=== PATIENT | female | born 1990 | race Caucasian/White ===

== ENCOUNTER → 2020-03-03 13:56 | Outpatient (BNVA) | payer OTHER, SELFPAY | PROVIDERS: Family Provider Family Medicine; PCP Family Medicine; Visit Provider Nurse Practitioner Family | DX: Z20.828 Contact with and (suspected) exposure to other viral communicable diseases (principal) | CPT/HCPCS: 87635 ==

== ENCOUNTER → 2020-08-11 09:39 | Outpatient (BNVA) | payer BC, MEDICAID, SELFPAY | PROVIDERS: Family Provider Family Medicine; PCP Family Medicine; Visit Provider Emergency Medicine | DX: M79.671 Pain in right foot (principal) | CPT/HCPCS: 73630 ==

== ENCOUNTER → 2021-03-01 08:45 | Outpatient (BNVA) | payer BC, MEDICAID, SELFPAY | PROVIDERS: Family Provider Family Medicine; PCP Family Medicine; Visit Provider Counselor Professional | DX: F33.1 Major depressive disorder, recurrent, moderate (principal); F41.1 Generalized anxiety disorder | CPT/HCPCS: 90834 ==

== ENCOUNTER → 2021-03-06 07:46 | Outpatient (BNVA) | payer BC, MEDICAID, SELFPAY | PROVIDERS: Family Provider Family Medicine; PCP Family Medicine; Visit Provider Counselor Professional | DX: F33.1 Major depressive disorder, recurrent, moderate (principal); F41.1 Generalized anxiety disorder | CPT/HCPCS: 90834 ==

== ENCOUNTER → 2021-03-14 17:05 | Outpatient (BNVA) | payer BC, MEDICAID, SELFPAY | PROVIDERS: Family Provider Family Medicine; PCP Family Medicine; Visit Provider Emergency Medicine | DX: Z20.822 Contact with and (suspected) exposure to COVID-19 (principal); J06.9 Acute upper respiratory infection, unspecified; J02.8 Acute pharyngitis due to other specified organisms; B97.89 Other viral agents as the cause of diseases classified elsewhere | CPT/HCPCS: 87400; 87635; 87880 ==

== ENCOUNTER → 2021-03-14 17:05 | Outpatient (BNVA) | payer BC, MEDICAID, SELFPAY | PROVIDERS: Family Provider Family Medicine; PCP Family Medicine; Visit Provider Emergency Medicine | DX: Z01.89 Encounter for other specified special examinations (principal) | CPT/HCPCS: 87400; 87880 ==

== ENCOUNTER → 2021-03-27 10:45 | Outpatient (BNVA) | payer BC, MEDICAID, SELFPAY | PROVIDERS: Family Provider Family Medicine; PCP Family Medicine; Visit Provider Family Medicine | DX: H53.419 Scotoma involving central area, unspecified eye (principal); H52 Disorders of refraction and accommodation; Z13.6 Encounter for screening for cardiovascular disorders; Z13.1 Encounter for screening for diabetes mellitus | CPT/HCPCS: 80053; 80061; 83735; 84443; 85025 ==

== ENCOUNTER → 2021-09-09 17:01 | Outpatient (BNVA) | payer BC, MEDICAID, SELFPAY | PROVIDERS: Family Provider Family Medicine; PCP Family Medicine; Visit Provider Emergency Medicine | DX: J02.9 Acute pharyngitis, unspecified (principal); Z20.818 Contact with and (suspected) exposure to other bacterial communicable diseases | CPT/HCPCS: 87071; 87880 ==

== ENCOUNTER → 2021-10-20 11:52 | Outpatient (BNVA) | payer BC, MEDICAID, SELFPAY | PROVIDERS: Family Provider Family Medicine; PCP Family Medicine; Visit Provider Emergency Medicine | DX: M79.672 Pain in left foot (principal) | CPT/HCPCS: 73630 ==

== ENCOUNTER → 2021-11-20 09:38 | Outpatient (BNVA) | payer BC, MEDICAID, SELFPAY | PROVIDERS: Family Provider Family Medicine; PCP Family Medicine; Visit Provider Anesthesiology Pain Medicine | DX: M54.16 Radiculopathy, lumbar region (principal); M41.86 Other forms of scoliosis, lumbar region | CPT/HCPCS: 72114; 73522 ==

== ENCOUNTER → 2022-08-20 13:22 | Outpatient (BNVA) | payer BC, MEDICAID, SELFPAY | PROVIDERS: Family Provider Family Medicine; PCP Nurse Practitioner Family; Visit Provider Emergency Medicine | DX: M54.6 Pain in thoracic spine (principal) | CPT/HCPCS: 72072 ==

== ENCOUNTER 2024-12-08 08:20 | Emergency (ER) | payer BC, MEDICAID, SELFPAY ==
--- NOTE | 2024-12-08 08:24 | ECG_ITS ---
[facility] Test Date: 2024-12-08 Pat Name: Nancy Young Department: Room: Gender: Female Code Machine Operator: : 1990 Requested By: Suzan Nino Order Number: [id number] Kirby MD: Rashawn Almeida M.D. Measurements Intervals [place] Rate: 50 P: 70 IA: 122 QRS: 85 QRSD: 100 T: 83 QT: 426 QTc: 390 Interpretive Statements SINUS BRADYCARDIA WITH SINUS ARRHYTHMIA No previous ECG available for comparison Electronically Signed On 12-09-2024 16:55:14 CDT by Rashawn Almeida M.D. [email or web address]
[2024-12-08 08:31] VITALS: BP 133/79; PULSE 53; RESP 16; TEMP 36.7; O2SAT 100; BMI 24.7
--- NOTE | 2024-12-08 08:31 | XR_ITS ---
WS: [id number] XR chest 1V portable [id number] REASON FOR EXAM: dyspnea FINDINGS: Thoracic aorta and mediastinum are unremarkable. The heart is at the upper limits of normal. Calcified granulomatous disease bilaterally. No acute pulmonary parenchymal or pleural abnormality is identified. No significant abnormality of the bony thorax. XR/XR chest 1V portable [id number] IMPRESSION: No acute chest abnormality.
--- NOTE | 2024-12-08 08:33 | ED_ITS ---
HPI - General Adult 2 General: Chief complaint: Arrhythmia/Palpitations Stated complaint: rapid heart rate Time Seen by Provider: 12/08/24 08:29 Source: patient Mode of arrival: ambulatory Limitations: no limitations History of Present Illness: 34-year-old female states been having so me intermittent palpitations over the last week. States she has times she feels like her heart is racing over 160s specially worse when she is going upstairs had some mild dyspnea as well denies any shortness of breath at rest denies any chest pain. She denies any cough or fever no history of arrhythmias states she has been under a lot of stress over the last few weeks as well. Associated symptoms: Reports dyspnea Related Data Home Medications ?Medication ?Instructions ?Recorded ?Confirmed meloxicam 15 mg tablet 15 mg PO DAILY PRN 12/08/24 12/08/24 inflammation/pain phentermine 37.5 mg tablet 37.5 mg PO QAM 12/08/24 Previous Rx's ?Medication ?Instructions ?Recorded acetaminophen 500 mg capsule 500 mg PO Q6H PRN fever # 30 caps 03/22/22 Allergies Allergy/AdvReac Type Severity Reaction Status Date / Time amoxicillin AdvReac Mild rash Verified 01/03/23 12:31 Penicillins AdvReac Mild rash Verified 01/03/23 12:31 Review of Systems 2 Resp: Reports: dyspnea PFSH ED 2 PFSH: Medical History Arthropathy of sacroiliac joint Depression Surgical History H/O section Family History Mother Hypertension Denies family history of Diabetes Social History Smoking and tobacco/nicotine status: former use of tobacco/nicotine Alcohol intake: never Substance/Drug Use: never Current gender identity: Female Female Reproductive History: Spontaneous abortions: No Physical Exam 2 Const: COMMON NORMALS: no acute distress, patient oriented x3 and healthy appearing HENMT: COMMON NORMALS: normocephalic and atraumatic HEAD & SCALP: n ormocephalic and atraumatic Eye: COMMON NORMALS: conjunctivae normal CONJUNCTIVA: Yes conjunctivae normal Neck/C-Spine: COMMON NORMALS: full ROM and supple Chest: COMMONS NORMALS: normal inspection of the chest Resp: COMMON NORMALS: normal respiratory effort, No retractions, No use of accessory muscles and clear to auscultation bilaterally AUSCULTATION: clear to auscultation bilaterally Cardio: COMMON NORMALS: regular rate, regular rhythm and No murmurs present (Cardio) RATE: regular rate RHYTHM: regular rhythm Extremity: COMMON NORMALS: normal to inspection and full ROM Neuro: COMMON NORMALS: patient oriented x3, moves all extremities and no focal motor deficits Psych: COMMON NORMALS: mental status grossly normal, Normal thought process present and cooperative THOUGHT PROCESS: Normal thought process present Skin: COMMON NORMALS: no rashes or lesions noted and no wounds GENERAL SKIN EXAM: no rashes or lesions noted Course 2 Vital Signs: Vital signs: Vital Signs Temperature 98.0 F 12/08/24 08:31 Pulse Rate 53 L 12/08/24 08:31 Respiratory Rate 16 12/08/24 08:31 Blood Pressure 133/79 12/08/24 08:31 Pulse Oximetry 100 12/08/24 08:31 Oxygen Delivery Me thod Room Air 12/08/24 08:31 MDM - General Adult Medical Decision Making Patient presents here with feelings of palpitation especially exertions been going on for 4 to 5 days. She has been well-appearing here with no tachycardia here EKG showed sinus bradycardia heart rate [address] elevation QRS 100 QTc 399. Differential included pulmonary emboli, ACS, pneumonia, pneumothorax. He is ruled out here chest x-ray showed no acute abnormalities her D-dimer was negative with no signs of pulmonary emboli. EKG and troponin here are normal no signs of ACS. Her heart rate has been normal while here longer she needs a follow-up with PCP continues likely get a heart monitor outpatient and if she worsens she is to return did go over lab work which was normal here. She understands agrees to plan. Medical Records I reviewed the patient's medical records. Lab Data I reviewed the patient's lab results. 12/08/24 09:33 12/08/24 09:33 Radiology Impressions Chest X-Ray 12/08/24 08:31 IMPRESSION: No acute chest abnormality. Laboratory Results WBC 4.76 10^3/uL (3.29-11.43) 12/08/24 09:33 RBC 4.57 10^6/uL (3.85-5.65) 12/08/24 09:33 Hgb 10.90 g/dL (11.27-16.99) L 12/08/24 09:33 Hct 38.2 % (36-47) 12/08/24 09:33 MCV 83.6 fl (85-98) L 12/08/24 09:33 MCH 23.9 pg (27-33) L 12/08/24 09: MCHC 28.5 g/dL (30-55) L 12/08/24 09:33 RDW 20.0 % (12.1-15.1) H 12/08/24 09:33 Plt Count 292 10^3/cmm (157-399) 12/08/24 09:33 MPV 10.7 fL (7.4-10.4) H 12/08/24 09:33 Neut % (Auto) 67.7 % 12/08/24 09: Lymph % (Auto) 23.3 % 12/08/24 09:33 Dukes % (Auto) 6.5 % 12/08/24 09:33 Eos % (Auto) 1.5 % 12/08/24 09:33 Baso % (Auto) 0.8 % 12/08/24 09:33 Neut # (Auto) 3.22 10^3/uL (1.8-7.7) 12/08/24 09:33 Lymph # (Auto) 1.1 10^3/uL (0.8-4.8) 12/08/24 09:33 Dukes # (Auto) 0.3 10^3/uL (0.2-0.9) 12/08/24 09:33 Eos # (Auto) 0.1 10^3/uL (0.0-0.8) 12/08/24 09:33 Baso # (Auto) 0.0 10^3/uL (0.0-0.1) 12/08/24 09:33 Nucleated RBC % (auto) 0 % 12/08/24 09:33 Nucleated RBCs # 0.0 /100WBC 12/08/24 09:33 D-Dimer <= 0.27 ug/mLFEU (0-0.59) 12/08/24 09:33 Sodium 138 mmol/L (136-145) 12/08/24 09:33 Potassium 4.0 mmol/L (3.5-5.1) 12/08/24 09:33 Chloride 103 mmol/L (98-107) 12/08/24 09:33 Carbon Dioxide 23 mmol/L (22-29) 12/08/24 09:33 Anion Gap 16.0 (5-19) 12/08/24 09:33 BUN 15 mg/dL (6-20) 12/08/24 09:33 Creatinine 0.7 mg/dL (0.5-0.9) 12/08/24 09:33 GFR Calculation 95.2 mL/min (90-130) 12/08/24 09:33 Glucose 84 mg/dL (65-115) 12/08/24 09:33 Calculated Osmolality 286 mOsm/kg (285-295) 12/08/24 09:33 Calcium 9.7 mg/dL (8.5-10.5) 12/08/24 09:33 Total Bilirubin 0.3 mg/dL (0.15-1.2) 12/08/24 09:33 AST 18 U/L (0-32) 12/08/24 09:33 ALT 11 U/L (0-33) 12/08/24 09:33 Alkaline Phosphatase 92 U/L (35-105) 12/08/24 09:33 Troponin T Baseline < 6 ng/L (0-10) 12/08/24 09:33 Total Protein 6.5 g/dL (6.6-8.7) L 12/08/24 09:33 Albumin 4.2 g/dL (3.5-5.2) 12/08/24 09:33 Globulin 2.3 g/dL (1.3-4.6) 12/08/24 09:33 HCG, Qual Negative (Negative) 12/08/24 09:33 All radiology interpretation(s) finalized by discharge EKG Data EKG 1: I personally reviewed and interpreted this EKG as follows: EKG interpretation date: 12/08/24 EKG interpretation time: 08:24 Interpretation: sinus gaby hr [address] elevation qrs 100 qtc 399 Computer generated interpretation: Chest X-Ray 12/08/24 08:31 IMPRESSION: No acute chest abnormality. Discharge Plan Discharge Patient Disposition: Home Clinical Impression: Palpitations Condition: Stable Prescriptions: No Action acetaminophen 500 mg capsule 500 mg PO Q6H PRN (Reason: fever) Qty: 30 0RF phentermine 37.5 mg tablet 37.5 mg PO QAM meloxicam 15 mg tablet 15 mg PO DAILY PRN (Reason: inflammation/pain) Discharge Orders: Discharge ED (Routine); Ordered 12/08/24 Ordered By: Suzan iNno Referrals: Sandra Villarreal NP [Primary Care Provider, Family Practice] - 4-7 days Sheyla Wray MD [Family Provider, Family Practice] Discharge Diet: Advance as tolerated Discharge Activity: Resume usual activity Patient Instructions: Heart Palpitations (ED) Print Language: Kuwaiti Coding Level of Care Code ED Order Takers Supervisor for Ruma Nichole
--- OUTSIDE RECORDS SUMMARY | 2024-12-08 08:37 | XMS_ITS | Encounter Summary ---
Author Organization [facility] Address [address] [place] [address] Care Team Providers Care Pathology Technician Name Role Phone Hadley Fuentes DO Primary Care Provider [phone] Encounter Details Date Type Department Care Team (Latest Contact Info) Description 04/30/2006 Outpatient Historical [facility] Orthopedics- 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
--- OUTSIDE RECORDS SUMMARY | 2024-12-08 08:37 | XMS_ITS | Encounter Summary ---
Author Organization [facility] Address [address] [place] [address] Care Team Providers Care Crime Scene Investigator Name Role Phone Neftaly Carlos MD Primary Care Provider Reason for Visit * Reason Comments Clinical Consult Before Scheduling Encounter Details Date Type Department Care Team (Late st Contact Info) Description 12/02/2024 Nurse Triage [facility] [address] [address] Neftaly Carlos MD [address] [address] Social History Tobacco Use Types Packs/Day Years Used Date Smoking Tobacco: Former Cigarettes 0.3 10 0 08/2009 - 08/2019 Smokeless Tobacco: Never Comments:Quit once in 2007, quit again 08/2019 Alcohol Use Standard Drinks/Week Comments No 0 (1 standard drink = 0.6 oz pur e alcohol) Comments No Sex and Gender Information Value Date Recorded Sex Assigned at Not on file Legal Sex Female 8:40 AM WRAP TURNER Gender Identity Not on file Sexual Orientation Not on file documented as of this encounter Miscellaneous Notes * Telephone Encounter - Sharyn Layne RN - 12/03/2024 1:59 PM CDT 12/03/2024 1:59 PM Appt scheduled for patient to be seen in [place] per her requst. Sharyn FISHER * Telephone Encounter - Sharyn Layne RN - 12/02/2024 4:45 PM CDT 12/02/2024 4:45 PM Returned call and spoke with patient. She states that she did not get anything done with her foot today and will try to come into the walk-in clinic tomorrow. I let her know that it was best to schedule an appointment as the time slots fill up quickly. She will try to come in at 8 AM depending on her schedule. Sharyn RN * Telephone Encounter - Sharyn Layne RN - 12/02/2024 9:04 AM CDT 12/02/2024 9:04 AM Returned call. No answer. Left voice mail/message to return our call. If patient/caregiver calls back, contact center please inform caller to expect a return call from the clinic. We have same-day appointments available with the float. We can get her scheduled for the glass in her foot. Sharyn RN * Telephone Encounter - Hernan Roa - 12/02/2024 8:54 AM CDT Copied from [facility] #[id number]. Topic: Symptomatic Care >> Dec 02, 2024 8:48 AM Hernan Guaman wrote: Has this patient seen any provider (current or former) at the requested clinic in the past? Yes, Select the appropriate age range and symptom Patient has symptoms and is seeking care. Caller Name: Nancy Young Callback Number: Telephone Information: Call Notes: patient called requesting an appointment, states she had glass in her foot that has been there for a month and is causing her pain and she is wanting to start on ADHD medication. No appointments available until 12/2024. Informed to utilize [facility] for the glass in foot and to expect a call back from the care team. Age Range/Symptom: Adult: 18+ & not High Risk Pain - present for 3 days or more OR 7 or less severity on a 0-10 scale (10 being worst) Does patient have any of the following other urgent symptoms: No urgent symptoms requiring warm call transfer How would caller like to proceed? Schedule an appointment but none available within 24-48 hours How would caller like to proceed? Schedule first available with care team Is there an encounter open? No Unable to schedule an in person appointment within 24-48 hours. Scheduled appointment for n/a. If this is not clinically appropriate, please contact patient. documented in this encounter Plan of Treatment Upcoming Encounters Date Type Department Care Team (Late st Contact Info) Description 12/14/2024 1:40 PM CDT Office Visit [address] [phone] Neftaly Carlos MD [address] [place] [phone] 04/13/2025 2:00 PM WRAP TURNER Office Visit [address] [phone] Neftaly Carlos MD [address] [place] [phone] documented as of this encounter Visit Diagnoses Not on filedocumented in this encounter Care Teams Crime Scene Investigator Relationship Specialty Start Date End Date Neftaly Carlos MD [address] [place] [phone] PCP - General Family Practice 07/08/23 documented as of this encounter
--- OUTSIDE RECORDS SUMMARY | 2024-12-08 08:37 | XMS_ITS | Encounter Summary ---
Author Organization [facility] Address [address] [place] [address] Care Team Providers Care Guest Service Team Leader Name Role Phone Hadley Fuentes DO Primary Care Provider [phone] Encounter Details Date Type Department Care Team (Latest Contact Info) Description 03/19/2006 Outpatient Historical [facility] Orthopedics- 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
--- OUTSIDE RECORDS SUMMARY | 2024-12-08 08:37 | XMS_ITS | Encounter Summary ---
Author Organization [facility] Address [address] [place] [address] Care Team Providers Care Factory Machine Computer Operator Name Role Phone Hadley Fuentes DO Primary Care Provider [phone] Encounter Details Date Type Department Care Team (Latest Contact Info) Description 05/15/2006 Outpatient Historical [facility] [address] [facility] [address] [place] [address] Jesus Adame MD NO ADDRESS ON FILE [facility] Com Orth Dev NEC (CMS/HCC) (Primary Dx) Social History Tobacco Use Types Packs/Day Years Used Date Smoking Tobacco: Never Assessed Comments Unknown Sex and Gender Information Value Date Recorded Sex Assigned at Not on file Legal Sex Female 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
--- OUTSIDE RECORDS SUMMARY | 2024-12-08 08:37 | XMS_ITS | Encounter Summary ---
Author Organization [employer] [facility] Address [address] [place] [address] Care Team Providers Care Optical Goods Drill Operator Name Role Phone Hadley Fuentes DO Primary Care Provider [phone] Encounter Details Date Type Department Care Team (Late st Contact Info) Description 04/09/2007 Outpatient Historical [facility] Jesus Adame MD NO ADDRESS ON FILE Social History Tobacco Use Types Packs/Day Years Used Date Smoking Tobacco: Never Assessed Comments Unknown Sex and Gender Information Value Date Recorded Sex Assigned at Not on file Legal Sex Female 5:52 AM 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 Venous blood specimen (specimen) 04/14/2007 4:01 PM GRIDDLE ATTENDANT 04/15/2007 2:48 AM GRIDDLE ATTENDANT us Jesus Adame MD POINT OF CARE TESTING Final Result [facility] [address] [place] [address] * BETA HCG QUANTITATIVE, BLOOD (04/14/2007 12:41 PM GRIDDLE ATTENDANT) CHORIONIC GONADOTROPIN, TOTAL <2.0 0.0 - 10.0 mlU/ML [facility] Comment: Total HCG levels between 10 mIU/mL and 25 mIU/mL may be indicative of early but need to be correlated with other clinical findings. HCG ranges during normal , as reported by the time piece repairer, are summarized as follows: Gestational Age Expected hCG Values (mIU/ml) 0.2-1 Weeks 5 - 50 1-2 Weeks 50 - 500 2-3 Weeks 100 - 5,000 3-4 Weeks 1,000 - 50,000 5-6 Weeks 10,000 - 100,000 6-8 Weeks 15,000 - 200,000 2-3 Months 10,000 - 100,000 Blood specimen (specimen) 04/14/2007 12:41 PM GRIDDLE ATTENDANT 04/14/2007 12:41 PM GRIDDLE ATTENDANT us Jesus Adame MD CHEMISTRY ORDERABLES Final R esult [facility] [address] [place] [address] documented in this encounter Visit Diagnoses Not on filedocumented in this encounter Care Teams Optical Goods Drill Operator Relationship Specialty Start Date End Date Hadley Fuentes DO [address] [place] [address] PCP - General Family Practice 03/29/20 documented as of this encounter
--- OUTSIDE RECORDS SUMMARY | 2024-12-08 08:37 | XMS_ITS | Encounter Summary ---
Author Organization [facility] Address [address] [place] [address] Care Team Providers Care Construction Carpenter Name Role Phone Hadley Fuentes DO Primary Care Provider [phone] Encounter Details Date Type Department Care Team (Latest Contact Info) Description 02/08/2006 Outpatient Historical [facility] Orthopedics- 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
--- OUTSIDE RECORDS SUMMARY | 2024-12-08 08:37 | XMS_ITS | Encounter Summary ---
Author Organization [facility] Address [address] [place] [address] Care Team Providers Care Education Rn Name Role Phone Hadley Fuentes DO Primary Care Provider [phone] Encounter Details Date Type Department Care Team (Late st Contact Info) Description 04/04/2007 Outpatient Historical [facility] Orthopedics- 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 CHIEF COMPLAINT: Pain left thigh. HISTORY OF PRESENT ILLNESS: This 16-year-old female is seen for removal of hardware left femur. Shedoes indicate that she did initially improve following 05/15/06 removal of distal most interlockingscrew from the left femur, and she was doing well. Nevertheless, she has had some persisting achiness in the left lower extremity, thigh region, and she voices desire to proceed with removal of hardware. I did obtain plain film x-rays of the left thigh on 04/04/07, and these revealed a Belmont T2 rods/screws in place left lower extremity, three interlocking screws noted distally, with a mid to distal diaphysial fracture, which appears to be well healed at this point. Proximally, there are two in terlocking screws noted, and hip joint appears well preserved. The patient is noted to have some discomfort with every day activities, has some soreness at night as well as during the day. She does indicate that she has hurt worse since February 01, 2007. She does have, by way of past medical history, no diabetes, tuberculosis, cancer, seizures, cardiovascular disease. PAST SURGICAL HISTORY: Positive for 05/15/06 removal of distal most interlocking screw left femur as well as 02/01/06 intramedullary soraida left femoral shaft fracture with retrograde placed Kathleen T2 intramedullary device, interlocked proximally and distally. CURRENT MEDICATIONS: 1. Celebrex. 2. Concerta. ALLERGIES: She reports allergy to Penicillin. FAMILY HISTORY: Negative for familial/congenital disorder. SOCIAL HISTORY: Positive for two packs per week of cigarette usage, and she denies alcoholic beverage intake. She reports no history of substance abuse, indicates that she has completed 12 years of school. She lists no occupation, indicates she is with no children, does not live alone. REVIEW OF SYSTEMS: Positive for night pain, joint pains. NEUROLOGICAL: Negative. ENDOCRINE: Negative. HEMATOLOGIC: Negative. GENITOURINARY: Negative. RESPIRATORY: Negative. CARDIOVASCULAR: Negative. REPRODUCTIVE: Negative. GASTROINTESTINAL: Negative. CANCER: Negative. IMMUNOLOGICAL: Negative. PSYCHIATRIC: Negative. GYNECOLOGIC: Negative. The patient indicates she is not . PHYSICAL EXAMINATION: VITAL SIGNS: Recorded revealing blood pressure 123/71, pulse of 64, respirations 14. HEENT: Normocephalic. NECK: Supple. LUNGS: Clear to percussion bilaterally. CARDIOVASCULAR: Regular rate and rhythm. ABDOMEN: Soft, nontender. EXTREMITIES: No cyanosis, clubbing, or edema is noted. The patient has no point tenderness over theleft thigh. She does have well healed incision at the site of the interlocking screws distally along the left thigh as well as proximally and the patient does have incision overlying the knee, which is well healed as well. She does have functional range of motion above the left knee and hip, slightly less than is noted on the right, however, at the knee in particular, about 10 degrees different in flexion. She does fully extend. There is no point tenderness over the patella or over the medial lateral femoral condylar surfaces. The patient describes a diffuse achiness in the left thigh. The x-rays are reviewed, findings as noted above. NEUROLOGICAL: The patient does have intact motor and sensory examination distally. Both lower extremities normal skin color appearance distally with normal muscle strength and tone. Pulses are symmetric in both lower extremities at the posterior tibialis with good capillary refill of both lower extremities. IMPRESSION: Retained hardware left femur. RECOMMENDATION: Discussed with the patient that there certainly can be no guarantee that removal ofhardware will reduce her discomfort, although I expect that there is good prospect that it will reduce her discomfort. She does understand that some individuals do have residual pain/limitations withor without hardware removal. I did certified travel counselor her that problems can and do arise with removal of hardware and we went through the informed consent process. She does voice understanding of and satisfaction with responses to her questions and voices desire to proceed with surgery as outlined, removal ofhardware. I anticipate that she likely will require at least an overnight stay, given her further extensive hardware in that femur , and I did advise her, as well, that it is not always possible to remove all of the hardware, as sometimes screws break or portions of the soraida or screws must remain ifthe hardware breaks or otherwise undergoes deformity during removal attempts. She acknowledges this. Scheduling is arranged for 04/14/07, removal of Belmont T2 rods/screws left femur. Jesus Adame M.D. [facility] Electronically Signed by Jesus Adame M.D. 04/14/2007 08:46 , A, dmt Job #: Document #: [id number] cc: IGN [employer] COOK SPECIALTY documented in this encounter Plan of Treatment Not on file documented as of this encounter Visit Diagnoses Not on filedocumented in this encounter Care Teams Education Rn Relationship Specialty Start Date End Date Hadley Fuentes DO [address] [place] [address] PCP - General Family Practice 03/29/20 documented as of this encounter
--- OUTSIDE RECORDS SUMMARY | 2024-12-08 08:37 | XMS_ITS | Encounter Summary ---
Author Organization [employer] [facility] Address [address] [place] [address] Care Team Providers Care Architectural Superintendent Name Role Phone Hadley Fuentes DO Primary Care Provider [phone] Encounter Details Date Type Department Care Team (Late st Contact Info) Description 02/01/2006 Inpatient Historical [facility] IN BED Jony Dsouza MD [address] [address] Closed Fracture of Shaft of Femur (CMS/HCC) (Primary Dx) Social History Tobacco Use Types Packs/Day Years Used Date Smoking Tobacco: Never Assessed Comments Unknown Sex and Gender Information Value Date Recorded Sex Assigned at Not on file Legal Sex Female 5:52 AM RN ELIGIBILITY Gender Identity Not on file Sexual Orientation Not on file documented as of this encounter Plan of Treatment Not on file documented as of this encounter Procedures Procedure Name Priority Date/Time Associated Diagnosis Comments CBC WITH DIFFERENTIAL Routine 02/02/2006 7:42 AM RN ELIGIBILITY BASIC METABOLIC PANEL Routine 02/02/2006 7:42 AM RN ELIGIBILITY CBC WITHOUT DIFFERENTIAL Routine 02/02/2006 12:20 AM RN ELIGIBILITY POC GLUCOSE Routine 02/01/2006 10:18 PM RN ELIGIBILITY CBC WITH DIFFERENTIAL Routine 02/01/2006 4:36 PM RN ELIGIBILITY PROTIME-INR Routine 02/01/2006 4:36 PM RN ELIGIBILITY ETHANOL LEVEL Routine 02/01/2006 4:36 PM RN ELIGIBILITY BASIC METABOLIC PANEL Routine 02/01/2006 4:36 PM RN ELIGIBILITY documented in this encounter Results * (ABNORMAL) BASIC METABOLIC PANEL (02/02/2006 7:42 AM RN ELIGIBILITY) GLUCOSE 122(H) 70 - 110 mg/dL INTERFACE SYSTEM BUN 17 7 - 17 mg/dL INTERFACE SYSTEM CREATININE 0.8 0.7 - 1.2 mg/dL INTERFACE SYSTEM SODIUM 138 136 - 145 mEq/L INTERFACE SYSTEM POTASSIUM 4.7 3.5 - 5.0 mEq/L INTERFACE SYSTEM CHLORIDE 105 95 - 110 mEq/L INTERFACE SYSTEM CO2 27 22 - 32 mmol/l INTERFACE SYSTEM ANION GAP 11 9 - 20 mEq/L INTERFACE SYSTEM OSMOLALITY, CALCULATED 288 275 - 295 mOsm/Kg INTERFACE SYSTEM CALCIUM 9.1 8.4 - 10.5 mg/dL INTERFACE SYSTEM 02/02/2006 7:42 AM RN ELIGIBILITY us Jony Dsouza MD CHEMISTRY ORDERABLES Final Result INTERFACE SYSTEM Refer to clinic/hospital department * (ABNORMAL) CBC WITH DIFFERENTIAL (02/02/2006 7:42 AM RN ELIGIBILITY) Pathologist [facility] WBC 12.2 4.5 - 13.5 K/ul INTERFACE SYSTEM RBC 3.49(L) 4.30 - 5.30 Mil/ul INTERFACE SYSTEM HEMOGLOBIN 10.1(L) 12.0 - 16.0 g/dL INTERFACE SYSTEM HEMATOCRIT 30.4(L) 36.0 - 46.0 % INTERFACE SYSTEM MCV 87.1 78.0 - 102.0 Fl INTERFACE SYSTEM MCH 28.9 26.0 - 32.0 pg INTERFACE SYSTEM MCHC 33.2 33.0 - 35.0 g/dL INTERFACE SYSTEM RDW 13.3 11.0 - 14.5 % INTERFACE SYSTEM PLATELETS 231 140 - 440 K/ul INTERFACE SYSTEM MPV 9.8 8.9 - 12.8 Fl INTERFACE SYSTEM NEUTROPHILS 89.2(H) 42.2 - 75.2 % INTERFACE SYSTEM LYMPHOCYTES 5.5(L) 24.0 - 44.0 % INTERFACE SYSTEM MONOCYTES 5.3 2.0 - 10.0 % INTERFACE SYSTEM NEUTROPHIL ABSOLUTE 10.9(H) 2.0 - 8.0 K/uL INTERFACE SYSTEM LYMPHOCYTE ABSOLUTE 0.7(L) 1.2 - 4.0 K/ul INTERFACE SYSTEM MONOCYTE ABSOLUTE 0.6 0.1 - 0.6 K/ul INTERFACE SYSTEM 02/02/2006 7:42 AM RN ELIGIBILITY Jony Dsouza MD HEMATOLOGY ORDERABLES Final Result INTERFACE SYSTEM Refer to clinic/hospital department * (ABNORMAL) CBC WITHOUT DIFFERENTIAL (02/02/2006 12:20 AM RN ELIGIBILITY) WBC 18.0(H) 4.5 - 13.5 K/ul INTERFACE SYSTEM RBC 3.64(L) 4.30 - 5.30 Mil/ul INTERFACE SYSTEM HEMOGLOBIN 10.5(L) 12.0 - 16.0 g/dL INTERFACE SYSTEM HEMATOCRIT 31.4(L) 36.0 - 46.0 % INTERFACE SYSTEM MCV 86.3 78.0 - 102.0 Fl INTERFACE SYSTEM MCH 28.8 26.0 - 32.0 pg INTERFACE SYSTEM MCHC 33.4 33.0 - 35.0 g/dL INTERFACE SYSTEM RDW 13.3 11.0 - 14.5 % INTERFACE SYSTEM PLATELETS 224 140 - 440 K/ul INTERFACE SYSTEM MPV 10.0 8.9 - 12.8 Fl INTERFACE SYSTEM NEUTROPHILS 94.9(H) 42.2 - 75.2 % INTERFACE SYSTEM LYMPHOCYTES 2.7(L) 24.0 - 44.0 % INTERFACE SYSTEM MONOCYTES 2.3 2.0 - 10.0 % INTERFACE SYSTEM BASOPHILS 0.1 0.0 - 1.0 % INTERFACE SYSTEM NEUTROPHIL ABSOLUTE 17.1(H) 2.0 - 8.0 K/uL INTERFACE SYSTEM LYMPHOCYTE ABSOLUTE 0.5(L) 1.2 - 4.0 K/ul INTERFACE SYSTEM MONOCYTE ABSOLUTE 0.4 0.1 - 0.6 K/ul INTERFACE SYSTEM BASOPHILS ABSOLUTE 0.0 0.0 - 0.2 K/ul INTERFACE SYSTEM 02/02/2006 12:2 0 AM RN ELIGIBILITY Jony Dsouza MD HEMATOLOGY ORDERABLES Final Result INTERFACE SYSTEM Refer to clinic/hospital department * (ABNORMAL) POC GLUCOSE (02/01/2006 10:18 PM RN ELIGIBILITY) GLUCOSE POC 162(H) 60 - 100 mg/dL INTERFACE SYSTEM 02/01/2006 10:1 8 PM RN ELIGIBILITY Jony Dsouza MD POINT OF CARE TESTING Final Result Performing Organization Address [facility] Phone Number INTERFACE SYSTEM Refer to clinic/hospital department * PROTIME-INR (02/01/2006 4:36 PM RN ELIGIBILITY) Pathologist [facility] PROTIME 15.2 13.0 - 15.7 Secs INTERFACE SYSTEM Comment: As of 05 note change in normal range. INR 1.1 INTERFACE SYSTEM Comment: Expected Values for INR: DVT/PE Goal INR 2.5; range 2.0 - 3.0 Valve Replacement Tissue Goal INR 2.5; range 2.0 - 3.0 Mechanical Goal INR 3.0; range 2.5 - 3.5 POST-CO Goal INR 2.5; range 2.0 - 3.0 or Goal 3.0; range 2.5 - 3.5 Atrial Fibrillation Goal INR 2.5; range 2.0 - 3.0 Ischemic Stroke Goal INR 2.5; range 2.0 - 3.0 For additional information see Guidelines for Anticoagulation available from the pharmacy Obdulia Pollack Pharm D. 02/01/2006 4:36 PM RN ELIGIBILITY us Lio Jones MD HEMATOLOGY ORDERABLES Lakisha l Result Performing Organization Address [facility] Phone Number INTERFACE SYSTEM Refer to clinic/hospital department * (ABNORMAL) CBC WITH DIFFERENTIAL (02/01/2006 4:36 PM RN ELIGIBILITY) WBC 16.8(H) 4.8 - 10.8 K/ul INTERFACE SYSTEM RBC 4.29(L) 4.60 - 6.20 Mil/ul INTERFACE SYSTEM HEMOGLOBIN 12.5(L) 14.0 - 18.0 g/dL INTERFACE SYSTEM HEMATOCRIT 37.5(L) 41.0 - 53.0 % INTERFACE SYSTEM MCV 87.4 84.0 - 103.0 Fl INTERFACE SYSTEM MCH 29.1 27.0 - 34.0 pg INTERFACE SYSTEM MCHC 33.3 30.0 - 35.0 g/dL INTERFACE SYSTEM RDW 13.1 11.0 - 14.5 % INTERFACE SYSTEM PLATELETS 303 140 - 440 K/ul INTERFACE SYSTEM MPV 10.3 8.9 - 12.8 Fl INTERFACE SYSTEM NEUTROPHILS 73.3 42.2 - 75.2 % INTERFACE SYSTEM LYMPHOCYTES 20.9(L) 24.0 - 44.0 % INTERFACE SYSTEM MONOCYTES 4.5 2.0 - 10.0 % INTERFACE SYSTEM EOSINOPHILS 1.1 0.0 - 7.0 % INTERFACE SYSTEM BASOPHILS 0.2 0.0 - 1.0 % INTERFACE SYSTEM NEUTROPHIL ABSOLUTE 12.3(H) 2.0 - 8.0 K/uL INTERFACE SYSTEM LYMPHOCYTE ABSOLUTE 3.5 1.2 - 4.0 K/ul INTERFACE SYSTEM MONOCYTE ABSOLUTE 0.8(H) 0.1 - 0.6 K/ul INTERFACE SYSTEM EOSINOPHIL ABSOLUTE 0.2 0.0 - 0.7 K/ul INTERFACE SYSTEM BASOPHILS ABSOLUTE 0.0 0.0 - 0.2 K/ul INTERFACE SYSTEM 02/01/2006 4:36 PM RN ELIGIBILITY Lio Jones MD HEMATOLOGY ORDERABLES Lakisha l Result Performing Organization Address [facility] Co de Phone Number INTERFACE SYSTEM Refer to clinic/hospital department * ETHANOL LEVEL (02/01/2006 4:36 PM RN ELIGIBILITY) ETHANOL <10 <=10 mg/dL INTERFACE SYSTEM 02/01/2006 4:36 PM RN ELIGIBILITY Lio Jones MD CHEMISTRY ORDERABLES Final Result INTERFACE SYSTEM Refer to clinic/hospital department * (ABNORMAL) BASIC METABOLIC PANEL (02/01/2006 4:36 PM RN ELIGIBILITY) GLUCOSE 158(H) 70 - 110 mg/dL INTERFACE SYSTEM BUN 20 9 - 20 mg/dL INTERFACE SYSTEM CREATININE 0.9 0.7 - 1.5 mg/dL INTERFACE SYSTEM SODIUM 141 136 - 145 mEq/L INTERFACE SYSTEM POTASSIUM 3.0(L) 3.5 - 5.0 mEq/L INTERFACE SYSTEM CHLORIDE 105 95 - 110 mEq/L INTERFACE SYSTEM CO2 26 22 - 32 mmol/l INTERFACE SYSTEM ANION GAP 13 9 - 20 mEq/L INTERFACE SYSTEM OSMOLALITY, CALCULATED 294 275 - 295 mOsm/Kg INTERFACE SYSTEM CALCIUM 9.5 8.4 - 10.5 mg/dL INTERFACE SYSTEM 02/01/2006 4:36 PM RN ELIGIBILITY us Lio Jones MD CHEMISTRY ORDERABLES Final Result INTERFACE SYSTEM Refer to clinic/hospital department documented in this encounter Visit Diagnoses Diagnosis Closed fracture of shaft of femur- Primary documented in this encounter Care Teams Architectural Superintendent Relationship Specialty Start Date End Date Hadley Fuentes DO [address] [place] [address] PCP - General Family Practice 03/29/20 documented as of this encounter
--- OUTSIDE RECORDS SUMMARY | 2024-12-08 08:37 | XMS_ITS | Encounter Summary ---
Author Organization [facility] Address [address] [place] [address] Care Team Providers Care Automotive Quality Manager Name Role Phone Hadley Fuentes DO Primary Care Provider [phone] Encounter Details Date Type Department Care Team (Latest Contact Info) Description 05/28/2006 Outpatient Historical [facility] Orthopedics[address] [place] [address] Jesus Adame MD NO ADDRESS ON FILE Cmp Int Orth Dev/Gft NOS (CMS/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
--- OUTSIDE RECORDS SUMMARY | 2024-12-08 08:38 | XMS_ITS | Encounter Summary ---
Author Organization [facility] Address 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 * Telephone Encounter - Michelle Joy LPN - 10/12/2024 12:35 PM CDT 10/12/2024 12:35 PM Called and notified patient of results. Voiced understanding. Patient states that she is not takinga supplement for her anemia. Encouraged he to eat iron enriched foods and to take with vitamin C enriched foods to help with absorption. Patient states that she went to the eye doctor and he said that she has 20/20 vision and that the pressure in her eyes is fine. But she is still having the blurriness. Did ask eye doctor and he was wondering if she may have a sinus issues or because of her frequent CASTRO maybe the residual effects of a stroke. Also patient states that she has not did the MRI yet was waiting for the blood work and after seeing her eye doctor. Michlele GUTIERREZ * Telephone Encounter - Michelle Joy LPN - 10/12/2024 12:35 PM CDT ----- Message from Delores Ruano sent at 10/12/2024 8:31 AM CDT ----- It will take a bit longer to get your autoimmune panel back. Your basic labs show you are a bit anemic. Do you take any kind of supplement? How are the visual issues? Have you gotten your MRI yet? ----- Message ----- From: Reddy Chavira Incoming [facility] Results Sent: 10/10/2024 6:55 AM CDT To: DALE Doherty * Result Encounter Note - Delores Ruano FNP - 10/12/2024 8:31 AM CDT Findings: The bones are intact, well mineralized and normally aligned and the joint spaces are well-maintained. [id number]-rf-hibaponi plantar calcaneal spur. IMPRESSION: 1. Nothing acute. * Result Encounter Note - Delores Ruano FNP - 10/12/2024 8:31 AM CDT It will take a bit longer to get your autoimmune panel back. Your basic labs show you are a bit anemic. Do you take any kind of supplement? How are the visual issues? Have you gotten your MRI yet? documented in this encounter Plan of Treatment Upcoming Encounters Date Type Department Care Team (Late st Contact Info) Description 12/14/2024 1:40 PM CDT Office Visit [facility] [address] [phone] Neftaly Carlos MD [address] [place] [phone] 04/13/2025 2:00 PM INTEGRATION PROJECT MANAGER Office Visit [address] [address] Neftaly Carlos MD [address] [place] [phone] documented as of this encounter Visit Diagnoses Not on filedocumented in this encounter Care Teams Development Mgr Relationship Specialty Start Date End Date Neftaly Carlos MD [address] [address] PCP - General Family Practice 07/08/23 documented as of this encounter
--- OUTSIDE RECORDS SUMMARY | 2024-12-08 08:38 | XMS_ITS | Clinical Summary ---
Author Organization [facility] [place] Address [address] [place] [address] Care Team Providers Care Gear Machinist Name Role Phone Hadley Fuentes Primary Care Provider [phone] Allergies Active Allergy Reactions Criticality Noted Date Comments Penicillins Unknown 11/21/2007 Medications ferrous sulfate 325 mg (65 mg iron) tablet 03/02/2020 Active Vitamin Plus Low Iron 27 mg iron- 1 mg Tablet 03/02/2020 Active escitalopram oxalate (LEXAPRO) 10 mg tablet Take 1 Tablet (10 mg) by mouth daily. Take with 20mg tablet 30 Tablet 2 03/29/2020 Active escitalopram oxalate (LEXAPRO) 20 mg tablet Take 1 Tablet (20 mg) by mouth daily. Take with 10mg tablet 30 Tablet 2 03/29/2020 Active ARIPiprazole (ABILIFY) 2 mg tablet Take 1 Tablet (2 mg) by mouth daily. 30 Tablet 2 03/29/2020 Active Active Problems Problem Noted Date Diagnosed Date Supervision of other normal 10/15/2014 Previous delivery affecting 0 10/15/2014 Sleeplessness 06/01/2009 Attention deficit hyperactivity disorder (ADHD) 11/15/2008 Overview (03/21/2010): Updating IMO/ICD9 Code and Description Irritability and anger 11/15/2008 Overview (03/22/2010): Updating IMO/ICD9 Code and Description Panic attacks 11/15/2008 Immunizations Immunization Administration Dates Next Due (TDVAX)(7 YRS UP) TETANUS AN D DIPHTHERIA TOXOIDS, ADSORBED (2 LF OF TETANUS TOXOID AND 2 LF OF DIPHTHERIA TOXOID), 0.5ML (PF), IM 08/02/2009,12/02/2003 Hepatitis B Vaccine 04/01/2002,09/15/2001,2001 Influenza Vaccine Split 3+ Yrs IM 12/16/2007 Family History Medical History Relation Name Comments Unknown Father Healthy Mother Relation Name Status Comments Father Alive Mother Alive Social History Tobacco Use Types Packs/Day Years Used Date Smoking Tobacco: Former Cigarettes 0.3 2.5 0 11/13/2004 - 05/15/2007 Smokeless Tobacco: Never Alcohol Use Standard Drinks/Week Comments No 0 (1 standard drink = 0.6 oz pur e alcohol) Comments No Sex and Gender Information Value Date Recorded Sex Assigned at Not on file Legal Sex Female 5:52 AM SSRS REPORT DEVELOPER Gender Identity Not on file Sexual Orientation Not on file Occupation Industry Job Start Date Job End Date Not on file Not on file Not on file Not on file Last Filed Vital Signs Vital Sign Reading Time Taken Comments Blood Pressure 124/64 03/29/2020 4:03 PM SSRS REPORT DEVELOPER Pulse 69 03/29/2020 4:03 PM SSRS REPORT DEVELOPER Temperature 35.8 C (96.4 F) 03/29/2020 4:03 PM SSRS REPORT DEVELOPER Respiratory Rate 20 10/17/2014 11:38 AM CDT Oxygen Saturation 98% 03/29/2020 4:03 PM SSRS REPORT DEVELOPER Inhaled Oxygen Concentration - - Weight 114.3 kg (252 lb) 03/29/2020 4:03 PM SSRS REPORT DEVELOPER Height 177.8 cm (5' 10 ) 03/29/2020 4:03 PM SSRS REPORT DEVELOPER Body Mass Index 36.16 03/29/2020 4:03 PM SSRS REPORT DEVELOPER Plan of Treatment Health Maintenance Due Date Last Done Comments Pre-Diabetes and Diabetes Screening 1989 DTAP/TDAP/TD VACCINES (2 - Tdap) 08/03/2009 08/03/19 10, 12/02/2003 HPV/Cotest (21-29) 03/30/2016 03/30/2011 HPV VACCINES (1 - 3-dose SCDM series) 2016 CERVICAL CANCER SCREENING 2019 HPV/Cotest (30-65) 2019 03/30/2011 PAP SMEAR 2019 03/30/2011 Preventative Visit-Managed Medicaid 07/08/202407/07 INFLUENZA VACCINE (#1) 2024 12/16/2007 HEPATITIS B VACCINES Completed 04/01/2002, 09/15/2001, 06/24/2001 Procedures Procedure Name Priority Date/Time Associated Diagnosis Comments CERV/VAG CYTOPATH, THIN PREP W/RFLX HPV Routine 03/30/2011 7:37 AM SSRS REPORT DEVELOPER from Last 3 Months or Most Recently Relevant to Health Maintenance Results * CERV/VAG CYTOPATH, THIN PREP W/RFLX HPV (03/30/2011 7:37 AM SSRS REPORT DEVELOPER) Pathologist [facility] THIN PREP CYTOLOGY REPORT REFLEX HPV [facility] [address] [facility] [address] Patient: NANCY QUEVEDO Accn No: [id number] , [id number] Collected: 03/30/2011 7:37:00 AM All cases except those with a DP prefix are performed by pathologists from [facility]. Case type DP is performed by Dr. Magnus Barlow, [facility] [address], [address] [address] (CLIA #[id number]) (Ph. [phone]). THIN PREP PAP - REFLEX HPV History Specimen Type: Endocervical LMP: 03-22-11 Previous Pap History: None Provided Specimen Adequacy Satisfactory for interpretation. Shows sufficient numbers of endocervical or metaplastic cells. Diagnosis NEGATIVE FOR INTRAEPITHELIAL LESION OR MALIGNANCY. (Prevously noted as Within Normal Limits). Interior Wall Assembler/ JMM Pathologist: 04/09/11 Completed by: MERE HERNÁNDEZ(ASCP) (Electronically signed by) 04/09/11 Comment Routine follow-up is suggested. Important Information About Pap Smears The Pap smear is associated with a low but well-documented and probably irreducible false negative rate of up to 10%. Additionally, the false positive rate for a diagnosis of invasive carcinoma or HSIL has been estimated to be approximately 1-10%. Therefore, any visible lesion on the cervix should be biopsied regardless of Pap smear findings. HPV Testing off the Thin Prep vial can be done as a means of further evaluating a Thin Prep Report. For information about ordering the HPV test, phone Virology at . Treatment or follow-up recommendations (if any) that are contained within this report are based upon general recommendations as contained in 2001 Consensus Guidelines For Cervical Cytological Abnormalities MELANI: June 18, 2001, and are provided as a general guideline rather than as a specific recommendation. Final decisions about the most appropriate treatment and follow-up should be made on an individualized basis by the treating physician in consultation with his/her patient. [facility] Home Team Therapy [facility] 03/30/2011 7:37 AM SSRS REPORT DEVELOPER Autumn Parry HOUSECLEANER FLOOR PATHOLOGY/CYTOLOGY ORDERABLES Edited INTERFACE SYSTEM Refer to clinic/hospital department [facility] [employer] [facility] CLIA# [id number] [address] [place] [id number] from Last 3 Months or Most Recently Relevant to Health Maintenance Insurance [facility] MEDICAID Advance Directives For more information, please contact: [phone] * Full Code (Latest Code Status on File) Date Activated Date Inactivated Comments 10/15/2014 3:00 PM 10/17/2014 3:31 PM * Full Code Date Activated Date Inactivated Comments 10/15/2014 1:37 PM 10/15/2014 3:00 PM * Full Code Date Activated Date Inactivated Comments 10/15/2014 10:21 AM 10/15/2014 1:37 PM Care Teams Gear Machinist Relationship Specialty Start Date End Date Hadley Fuentes DO [address] [place] [address] PCP - General Family Practice 03/29/20
--- OUTSIDE RECORDS SUMMARY | 2024-12-08 08:38 | XMS_ITS | Encounter Summary ---
Author Organization [facility] Address [address] [place] [address] Care Team Providers Care Home Care Assistant Name Role Phone Hadley Fuentes DO Primary Care Provider [phone] Encounter Details Date Type Department Care Team (Late st Contact Info) Description 02/26/2008 Emergency [facility] Emergency Department [address] [place] [address] Ed, Physician NO ADDRESS ON FILE Yuliana Marshall, BILINGUAL MANAGER NO ADDRESS ON FILE Abdominal Pain, Unspecified Site; Personal History of Allergy to Penicillin; Other Postprocedural Status Social History Tobacco Use Types Packs/Day Years Used Date Smoking Tobacco: Former Cigarettes 0.3 2.5 0 11/13/2004 - 05/15/2007 Comments Yes Sex and Gender Information Value Date Recorded Sex Assigned at Not on file Legal Sex Female 5:52 AM BUSINESS OFFICE REPRESENTATIVE Gender Identity Not on file Sexual Orientation Not on file documented as of this encounter Plan of Treatment Not on file documented as of this encounter Visit Diagnoses Diagnosis Abdominal pain, unspecified site Personal history of allergy to penicillin Other postprocedural status(V45.89) Other postprocedural status documented in this encounter Care Teams Home Care Assistant Relationship Specialty Start Date End Date Hadley Fuentes DO [address] [place] [address] PCP - General Family Practice 03/29/20 documented as of this encounter
--- OUTSIDE RECORDS SUMMARY | 2024-12-08 08:38 | XMS_ITS | Encounter Summary ---
Author Organization [facility] Address [address] [place] [address] Care Team Providers Care Piece Maker Name Role Phone Hadley Fuentes DO Primary Care Provider [phone] Encounter Details Date Type Department Care Team (Latest Contact Info) Description 06/17/2007 Outpatient Historical [address] [id number] Tra Clark MD [address] [place] [address] Supervision of Other Normal Social History Tobacco Use Types Packs/Day Years Used Date Smoking Tobacco: Never Assessed Comments Yes Sex and Gender Information Value Date Recorded Sex Assigned at Not on file Legal Sex Female 5:52 AM AIRFIELD SERVICES OFFICER Gender Identity Not on file Sexual Orientation Not on file documented as of this encounter Plan of Treatment Not on file documented as of this encounter Procedures Procedure Name Priority Date/Time Associated Diagnosis Comments GC, GENITAL Routine 06/17/2007 4:34 PM CDT CHLAMYDIA, GENITAL Routine 06/17/2007 4: 34 PM CDT documented in this encounter Results * GC DNA AMPLIFICATION (06/17/2007 4:34 PM CDT) FINAL REPORT DNA Amplification Assay: negative for Neisseria gonorrhoeae This procedure is approved for testing only on endocervical and male urethral swab specimens and male urine. The use of specimens from any other body site has not been validated. INTERFACE SYSTEM Specimen from genital system (specimen) CERVIX UTERI STRUCTURE / Unknown 06/17/2007 4:34 PM CDT 06/18/2007 12:24 PM CDT Tra Clark MD MICROBIOLOGY - GENERAL KARENA PROSPER Final Result Performing Organization Address [facility] Phone Number INTERFACE SYSTEM Refer to clinic/hospital department * CHLAMYDIA DNA AMPLIFICATION (06/17/2007 4:34 PM CDT) FINAL REPORT DNA Amplification Assay: negative for Chlamydia trachomatis * This procedure is approved for testing only on endocervical and male urethral swab specimens and urine. The use of specimens from any other body site has not been validated. INTERFACE SYSTEM Specimen from genital system (specimen) CERVIX UTERI STRUCTURE / Unknown 06/17/2007 4:34 PM CDT 06/18/2007 12:24 PM CDT Tra Clark MD MICROBIOLOGY - GENERAL KARENA BLEFermin Final Result Performing Organization Address [facility] de Phone Number INTERFACE SYSTEM Refer to clinic/hospital department documented in this encounter Visit Diagnoses Diagnosis Supervision of other normal documented in this encounter Care Teams Piece Maker Relationship Specialty Start Date End Date Hadley Fuentes DO [address] [place] [address] PCP - General Family Practice 03/29/20 documented as of this encounter
--- OUTSIDE RECORDS SUMMARY | 2024-12-08 08:38 | XMS_ITS | Encounter Summary ---
Author Organization [facility] Address [address] [place] [address] Care Team Providers Care Data Scientist Name Role Phone Hadley Fuentes DO Primary Care Provider [phone] Encounter Details Date Type Department Care Team (Late st Contact Info) Description 02/07/2010 Ancillary Orders [facility] [address] [place] [phone] Yaw Dasilva MD [address] [place] [address] Hematuria; Flank pain Social History Tobacco Use Types Packs/Day Years Used Date Smoking Tobacco: Former Cigarettes 0.3 2.5 0 11/13/2004 - 05/15/2007 Alcohol Use Standard Drinks/Week Comments No 0 (1 standard drink = 0.6 oz pur e alcohol) Comments No Sex and Gender Information Value Date Recorded Sex Assigned at Not on file Legal Sex Female 5:52 AM LEGAL BILLING SPECIALIST Gender Identity Not on file Sexual Orientation Not on file documented as of this encounter Plan of Treatment Not on file documented as of this encounter Visit Diagnoses Diagnosis Hematuria Hematuria, unspecified Flank pain Abdominal pain, unspecified site documented in this encounter Care Teams Data Scientist Relationship Specialty Start Date End Date Hadley Fuentes DO [address] [address] PCP - General Family Practice 03/29/20 documented as of this encounter
--- OUTSIDE RECORDS SUMMARY | 2024-12-08 08:38 | XMS_ITS | Encounter Summary ---
Author Organization [employer] [facility] Address [address] [place] [address] Care Team Providers Care Flatwork Catcher Name Role Phone Hadley Fuentes DO Primary Care Provider [phone] Encounter Details Date Type Department Care Team (Latest Contact Info) Description 02/01/2006 Outpatient Historical [facility] [address] [place] [address] [facility] Pain in Joint, Shoulder Region (Primary Dx) Social History Tobacco Use Types Packs/Day Years Used Date Smoking Tobacco: Never Assessed Comments Unknown Sex and Gender Information Value Date Recorded Sex Assigned at Not on file Legal Sex Female 5:52 AM FOREIGN LANGUAGE TEACHER Gender Identity Not on file Sexual Orientation Not on file documented as of this encounter Plan of Treatment Not on file documented as of this encounter Visit Diagnoses Diagnosis Pain in joint, shoulder region- Primary documented in this encounter Care Teams Flatwork Catcher Relationship Specialty Start Date End Date Hadley Fuentes DO [address] [place] [address] PCP - General Family Practice 03/29/20 documented as of this encounter
--- OUTSIDE RECORDS SUMMARY | 2024-12-08 08:38 | XMS_ITS | Encounter Summary ---
Author Organization [employer] [facility] Address [address] [place] [address] Care Team Providers Care Samples And Repairs Preparer Name Role Phone Hadley Fuentes DO Primary Care Provider [phone] Encounter Details Date Type Department Care Team (Latest Contact Info) Description 10/03/2004 Outpatient Historical [facility] [address] [place] [address] Yaw Dasilva MD [address] [place], [place] [address] SHORTNESS OF BREATH (Primary Dx) Social History Tobacco Use Types Packs/Day Years Used Date Smoking Tobacco: Never Assessed Comments Unknown Sex and Gender Information Value Date Recorded Sex Assigned at Not on file Legal Sex Female 5:52 AM CASINO HOST Gender Identity Not on file Sexual Orientation Not on file documented as of this encounter Plan of Treatment Not on file documented as of this encounter Visit Diagnoses Diagnosis Shortness of breath- Primary documented in this encounter Care Teams Samples And Repairs Preparer Relationship Specialty Start Date End Date Hadley Fuentes DO [address] [place] [address] PCP - General Family Practice 03/29/20 documented as of this encounter
--- OUTSIDE RECORDS SUMMARY | 2024-12-08 08:38 | XMS_ITS | Encounter Summary ---
Author Organization [employer] [facility] Address [address] [place] [address] Care Team Providers Care Sales Project Manager Name Role Phone Hadley Fuentes DO Primary Care Provider [phone] Encounter Details Date Type Department Care Team (Latest Contact Info) Description 02/01/2006 Outpatient Historical [facility] [address] [place] [address] AMBULANCE, [facility] Injury, Other and Unspecified, Hip and Thigh (Primary Dx) Social History Tobacco Use Types Packs/Day Years Used Date Smoking Tobacco: Never Assessed Comments Unknown Sex and Gender Information Value Date Recorded Sex Assigned at Not on file Legal Sex Female 5:52 AM SUPERINTENDENT CEMETERY Gender Identity Not on file Sexual Orientation Not on file documented as of this encounter Plan of Treatment Not on file documented as of this encounter Visit Diagnoses Diagnosis Injury, other and unspecified, hip and thigh- Primary documented in this encounter Care Teams Sales Project Manager Relationship Specialty Start Date End Date Hadley Fuentes DO [address] [place] [address] PCP - General Family Practice 03/29/20 documented as of this encounter
--- OUTSIDE RECORDS SUMMARY | 2024-12-08 08:38 | XMS_ITS | Encounter Summary ---
Author Organization [facility] Address [address] [place] [address] Care Team Providers Care Front End Manager Name Role Phone Hadley Fuentes DO Primary Care Provider [phone] Encounter Details Date Type Department Care Team (Late st Contact Info) Description 11/27/2007 Outpatient Historical [facility] Bg Garza Jr., MD [address] [place] [id number] Social History Tobacco Use Types Packs/Day Years Used Date Smoking Tobacco: Every Day Cigarettes 0.3 2.5 Comments Yes Sex and Gender Information Value Date Recorded Sex Assigned at Not on file Legal Sex Female 5:52 AM SAIL FINISHER HAND Gender Identity Not on file Sexual Orientation Not on file documented as of this encounter Plan of Treatment Not on file documented as of this encounter Visit Diagnoses Not on filedocumented in this encounter Care Teams Front End Manager Relationship Specialty Start Date End Date Hadley Fuentes DO [address], [place] [address] PCP - General Family Practice 03/29/20 documented as of this encounter
--- OUTSIDE RECORDS SUMMARY | 2024-12-08 08:38 | XMS_ITS | Encounter Summary ---
Author Organization [employer] [facility] Address [address] [place] [address] Care Team Providers Care Post Acute Care Nurse Name Role Phone Hadley Fuentes DO Primary Care Provider Encounter Details Date Type Department Care Team (Late st Contact Info) Description 01/18/2008 Outpatient Historical HIS IN BED Sj Ed, Physician NO ADDRESS ON FILE Mark Pereyra MD [address] [facility] [address] [place] [address] Akira Matias MD NO ADDRESS ON FILE Infection-Gram Neg NEC; Cellulitis and Abscess of Trunk Social History Tobacco Use Types Packs/Day Years Used Date Smoking Tobacco: Former Cigarettes 0.3 2.5 0 11/13/2004 - 05/15/2007 Comments Yes Sex and Gender Information Value Date Recorded Sex Assigned at Not on file Legal Sex Female 5:52 AM GUEST SERVICES LEAD Gender Identity Not on file Sexual Orientation Not on file documented as of this encounter Plan of Treatment Not on file documented as of this encounter Procedures Procedure Name Priority Date/Time Associated Diagnosis Comments SEDIMENTATION RATE Routine 01/24/2008 6: 05 AM GUEST SERVICES LEAD GENTAMICIN LEVEL PEAK Routine 01/23/2008 4:22 AM GUEST SERVICES LEAD GENTAMICIN LEVEL TROUGH Routine 01/22/2008 11:10 PM GUEST SERVICES LEAD CBC WITH DIFFERENTIAL Routine 01/22/2008 6:49 PM GUEST SERVICES LEAD SEDIMENTATION RATE Routine 01/22/2008 6: 49 PM GUEST SERVICES LEAD GENTAMICIN LEVEL PEAK Routine 01/22/2008 6:49 PM GUEST SERVICES LEAD GENTAMICIN LEVEL TROUGH Routine 01/22/2008 4:00 PM GUEST SERVICES LEAD GENTAMICIN LEVEL PEAK Stat 01/20/2008 2:30 AM GUEST SERVICES LEAD CBC WITH DIFFERENTIAL Routine 01/19/2008 11:34 PM GUEST SERVICES LEAD GENTAMICIN LEVEL TROUGH Routine 01/19/2008 11:34 PM GUEST SERVICES LEAD BODY FLUID CULTURE WITH GRAM STAIN Routine 01/19/2008 10:58 AM GUEST SERVICES LEAD ANAEROBIC CULTURE Routine 01/19/2008 10: 58 AM GUEST SERVICES LEAD US GUIDED ASPIRATION Routine 01/19/2008 10:53 AM GUEST SERVICES LEAD PT AND APTT Stat 01/19/2008 7:44 AM GUEST SERVICES LEAD PLATELET COUNT Stat 01/19/2008 7:44 AM GUEST SERVICES LEAD GC, GENITAL Stat 01/19/2008 2:35 AM GUEST SERVICES LEAD CHLAMYDIA, GENITAL Stat 01/19/2008 2: 35 AM GUEST SERVICES LEAD WET PREP GENITAL Stat 01/19/2008 2:35 AM GUEST SERVICES LEAD URINE CULTURE Stat 01/19/2008 2:[address] [address] ABDOMEN PELVIS W CONTRAST Routine 01/19/2008 2:00 AM GUEST SERVICES LEAD CBC WITH DIFFERENTIAL Stat 01/19/2008 12:35 AM GUEST SERVICES LEAD BASIC METABOLIC PANEL Stat 01/19/2008 12:35 AM GUEST SERVICES LEAD URINALYSIS MICROSCOPY ONLY Stat 01/19/2008 12:20 AM GUEST SERVICES LEAD URINALYSIS W/REFLEX MICROSCOPIC Stat 01/19/2008 12:20 AM GUEST SERVICES LEAD documented in this encounter Results * (ABNORMAL) SEDIMENTATION RATE (01/24/2008 6:05 AM GUEST SERVICES LEAD) ESR (SEDIMENTATION RATE) 105(H) 0 - 22 mm/hr [facility] Blood specimen (specimen) 01/24/2008 6:05 AM GUEST SERVICES LEAD 01/24/2008 6:17 AM GUEST SERVICES LEAD us Akira Matias MD HEMATOLOGY ORDERABLES Final Res ult Performing Organization Address [facility] Phone Number INTERFACE SYSTEM Refer to clinic/[facility] CLIA# [id number] [address] [place] [address] * GENTAMICIN LEVEL PEAK (01/23/2008 4:22 AM GUEST SERVICES LEAD) GENTAMICIN, PEAK 6.4 4.0 - 10.0 mcg/mL [facility] Blood specimen (specimen) 01/23/2008 4:22 AM GUEST SERVICES LEAD 01/23/2008 4:40 AM GUEST SERVICES LEAD us Akira Matias MD CHEMISTRY ORDERABLES Final Resu lt Performing Organization Address [facility] Phone Number INTERFACE SYSTEM Refer to clinic/[facility] CLIA# [id number] [address] [place] [address] * (ABNORMAL) GENTAMICIN LEVEL TROUGH (01/22/2008 11:10 PM GUEST SERVICES LEAD) GENTAMICIN, TROUGH 2.8(AA) 0.0 - 2.0 mcg/mL [facility] Comment: Potentially critical/toxic GENT T called by AAG to Urban FISHER, with verbal read back, at 01/23/08 00:01. Blood specimen (specimen) 01/22/2008 11:10 PM GUEST SERVICES LEAD 01/22/2008 11:24 PM GUEST SERVICES LEAD us Akira Matias MD CHEMISTRY ORDERABLES Final Resu lt Performing Organization Address [facility] Phone Number INTERFACE SYSTEM Refer to clinic/hospital department [facility] CLIA# [id number] [address] [place] [address] * GENTAMICIN LEVEL PEAK (01/22/2008 6:49 PM GUEST SERVICES LEAD) [facility] GENTAMICIN, PEAK 7.9 4.0 - 10.0 mcg/mL [facility] Blood specimen (specimen) 01/22/2008 6:49 PM GUEST SERVICES LEAD 01/22/2008 7:12 PM GUEST SERVICES LEAD us Akira Matias MD CHEMISTRY ORDERABLES Final Resu lt Performing Organization Address [facility] Phone Number INTERFACE SYSTEM Refer to clinic/hospital department [facility] CLIA# [id number] [address] [place] [address] * (ABNORMAL) SEDIMENTATION RATE (01/22/2008 6:49 PM GUEST SERVICES LEAD) [facility] ESR (SEDIMENTATION RATE) 105(H) 0 - 22 mm/hr [facility] Blood specimen (specimen) 01/22/2008 6:49 PM GUEST SERVICES LEAD 01/22/2008 7:12 PM GUEST SERVICES LEAD us Akira Matias MD HEMATOLOGY ORDERABLES Final Res ult Performing Organization Address [facility] de Phone Number INTERFACE SYSTEM Refer to clinic/hospital department [facility] CLIA# [id number] [address] [place] [address] * (ABNORMAL) CBC WITH DIFFERENTIAL (01/22/2008 6:49 PM GUEST SERVICES LEAD) [facility] RBC 4.03(L) 4.20 - 5.40 Mil/ul [facility] LYMPHOCYTES 25.1 24.0 - 44.0 % [facility] MCHC 32.9 30.0 - 35.0 g/dL [facility] LYMPHOCYTE ABSOLUTE 2.4 1.2 - 4.0 K/ul [facility] MCV 83.6(L) 84.0 - 103.0 Fl [facility] MPV 9.0 8.9 - 12.8 Fl [facility] BASOPHILS 0.5 0.0 - 1.0 % [facility] BASOPHILS ABSOLUTE 0.1 0.0 - 0.2 K/ul [facility] HEMOGLOBIN 11.1(L) 12.0 - 16.0 g/dL [facility] RDW 14.6(H) 11.0 - 14.5 % [facility] MONOCYTES 4.5 2.0 - 10.0 % [facility] MONOCYTE ABSOLUTE 0.4 0.1 - 0.6 K/ul [facility] WBC 9.6 4.5 - 12.5 K/ul [facility] MCH 27.5 27.0 - 34.0 pg [facility] NEUTROPHIL ABSOLUTE 6.3 2.0 - 8.0 K/ul [facility] NEUTROPHILS 65.6 42.2 - 75.2 % [facility] HEMATOCRIT 33.7(L) 36.0 - 46.0 % [facility] EOSINOPHILS 4.3 0.0 - 7.0 % [facility] PLATELETS 441(H) 140 - 440 K/ul [facility] EOSINOPHIL ABSOLUTE 0.4 0.0 - 0.7 K/ul [facility] Blood specimen (specimen) 01/22/2008 6:49 PM GUEST SERVICES LEAD 01/22/2008 7:12 PM GUEST SERVICES LEAD us Akira Matias MD HEMATOLOGY ORDERABLES Final Res ult INTERFACE SYSTEM Refer to clinic/hospital department [facility] CLIA# [id number] [address] [place] [address] * (ABNORMAL) GENTAMICIN LEVEL TROUGH (01/22/2008 4:00 PM GUEST SERVICES LEAD) GENTAMICIN, TROUGH 3.6(AA) 0.0 - 2.0 mcg/mL [facility] Comment: Potentially critical/toxic GEN.TROUGH called by Baker, with verbal read back, at 01/22/08 18:01. Blood specimen (specimen) 01/22/2008 4:00 PM GUEST SERVICES LEAD 01/22/2008 4:24 PM GUEST SERVICES LEAD us Akira Matias MD CHEMISTRY ORDERABLES Final Resu lt Performing Organization Address [facility] Phone Number INTERFACE SYSTEM Refer to clinic/hospital department [facility] CLIA# [id number] [address] [place] [address] * GENTAMICIN LEVEL PEAK (01/20/2008 2:30 AM GUEST SERVICES LEAD) GENTAMICIN, PEAK 5.9 4.0 - 10.0 mcg/mL [facility] Blood specimen (specimen) 01/20/2008 2:30 AM GUEST SERVICES LEAD 01/20/2008 2:42 AM GUEST SERVICES LEAD us Akira Matias MD CHEMISTRY ORDERABLES Final Resu Performing Organization Address [facility] Phone Number INTERFACE SYSTEM Refer to clinic/hospital [facility] CLIA# [id number] [address] [place] [address] * GENTAMICIN LEVEL TROUGH (01/19/2008 11:34 PM GUEST SERVICES LEAD) GENTAMICIN, TROUGH 1.2 0.0 - 2.0 mcg/mL [facility] Blood specimen (specimen) 01/19/2008 11:34 PM GUEST SERVICES LEAD 01/19/2008 11:46 PM GUEST SERVICES LEAD us Akira Matias MD CHEMISTRY ORDERABLES Final Resu Performing Organization Address [facility] Phone Number INTERFACE SYSTEM Refer to clinic/[facility] CLIA# [id number] [address] [place] [address] * (ABNORMAL) CBC WITH DIFFERENTIAL (01/19/2008 11:34 PM GUEST SERVICES LEAD) NEUTROPHIL ABSOLUTE 9.2(H) 2.0 - 8.0 K/ul [facility] NEUTROPHILS 75.6(H) 42.2 - 75.2 % [facility] HEMATOCRIT 29.3(L) 36.0 - 46.0 % [facility] EOSINOPHILS 2.1 0.0 - 7.0 % [facility] PLATELETS 308 140 - 440 K/ul [facility] EOSINOPHIL ABSOLUTE 0.3 0.0 - 0.7 K/ul [facility] RBC 3.48(L) 4.20 - 5.40 Mil/ul [facility] LYMPHOCYTES 16.6(L) 24.0 - 44.0 % [facility] MCHC 32.1 30.0 - 35.0 g/dL [facility] LYMPHOCYTE ABSOLUTE 2.0 1.2 - 4.0 K/ul [facility] MCV 84.2 84.0 - 103.0 Fl [facility] MPV 9.1 8.9 - 12.8 Fl [facility] BASOPHILS ABSOLUTE 0.0 0.0 - 0.2 K/ul [facility] BASOPHILS 0.2 0.0 - 1.0 % [facility] HEMOGLOBIN 9.4(L) 12.0 - 16.0 g/dL [facility] RDW 14.7(H) 11.0 - 14.5 % [facility] MONOCYTE ABSOLUTE 0.7(H) 0.1 - 0.6 K/ul [facility] MONOCYTES 5.5 2.0 - 10.0 % [facility] WBC 12.2 4.5 - 12.5 K/ul [facility] MCH 27.0 27.0 - 34.0 pg [facility] Blood specimen (specimen) 01/19/2008 11:34 PM GUEST SERVICES LEAD 01/19/2008 11:46 PM GUEST SERVICES LEAD us Akira Matias MD HEMATOLOGY ORDERABLES Final Res ult INTERFACE SYSTEM Refer to clinic/hospital department [facility] CLIA# [id number] [address] [place] [address] * ANAEROBIC CULTURE (01/19/2008 10:58 AM GUEST SERVICES LEAD) FINAL REPORT Dr. Matias requests susceptibility (with addition of Erythromycin) to these isolates 11.08. 1. Heavy isolation anaerobic Gram Positive Coccobacilli Identified as: Peptostreptococcus prevotii Erythromycin 0.12 mcg/ml 2. Few colonies anaerobic Gram negative bacilli Identified as: Prevotella species Erythromycin 0.06 mcg./ml NOTE: Erthromycin not indicated in the treatment of anaerobes. Therefore, no interpretive guidelines available. INTERFACE SYSTEM SUSCEPTIBILITY PERFORMED ON ANAEROCOCCUS {PEPTOSTREPTOCOCCUS} PREVOTII INTERFACE SYSTEM SUSCEPTIBILITY PERFORMED ON PREVOTELLA SPECIES INTERFACE SYSTEM ABDOMEN AND PELVIS / Unknown 01/19/2008 10:58 AM GUEST SERVICES LEAD 01/19/2008 12:34 PM GUEST SERVICES LEAD Narrative Organism Antibiotic Method Susceptibility Anaerococcus prevotii CLINDAMYCIN GN SUSCEPTIBILITY 0.12: Susceptible Anaerococcus prevotii METRONIDAZOLE GN SUSCEPTIBILITY 0.12: Susceptible Anaerococcus prevotii PENICILLIN GN SUSCEPTIBILITY 4: Resistant Prevotella species CLINDAMYCIN GN SUSCEPTIBILITY <0.03: Susceptible Prevotella species METRONIDAZOLE GN SUSCEPTIBILITY 1: Susceptible Prevotella species PENICILLIN GN SUSCEPTIBILITY 4: Resistant Akira Matias MD MICROBIOLOGY - GENERAL ORDERABL ES Final Result INTERFACE SYSTEM Refer to clinic/hospital department * BODY FLUID CULTURE WITH GRAM STAIN (01/19/2008 10:58 AM GUEST SERVICES LEAD) GRAM STAIN Numerous (>50/oil hpf) Gram negative bacilli Numerous (>50/oil hpf) Gram positive bacilli Numerous (>50/oil hpf) Gram positive cocci Numerous (>10/oil hpf) PMN WBC's observed INTERFACE SYSTEM ADDENDUM REPORT Addendum report issued due to: Dr. Matias requests susceptibility on isolate #1. 1. Heavy isolation Gram positive cocci Identified as: Viridans Streptococcus species Susceptibility available 01/24/08 10:03:55. 2. Heavy isolation Gram variable rods suggestive of Gardnerella vaginalis Susceptibility not routinely performed Due to fastidious growth requirements and lack of standardization of test methodology susceptibility testing is not routinely performed on this organism. INTERFACE SYSTEM SUSCEPTIBILITY PERFORMED ON STREPTOCOCCUS VIRIDANS INTERFACE SYSTEM 01/19/2008 10:5 8 AM GUEST SERVICES LEAD 01/19/2008 12:34 PM GUEST SERVICES LEAD Narrative Organism Antibiotic Method Susceptibility Streptococcus viridans CEFOTAXIME E TEST 0.25: Susceptible Streptococcus viridans CLINDAMYCIN E TEST 0.06: Susceptible Streptococcus viridans ERYTHROMYCIN E TEST 4: Resistant Streptococcus viridans LEVOFLOXACIN E TEST 0.5: Susceptible Streptococcus viridans PENICILLIN E TEST 0.06: Susceptible Streptococcus viridans VANCOMYCIN E TEST 1: Susceptible Akira Matias MD MICROBIOLOGY - GENERAL ORDERABL ES Edited INTERFACE SYSTEM Refer to clinic/hospital department * US GUIDED ASPIRATION (01/19/2008 10:53 AM GUEST SERVICES LEAD) Anatomical Region Laterality Modality Other 01/19/2008 10:5 3 AM GUEST SERVICES LEAD Narrative 01/19/2008 3:42 PM GUEST SERVICES LEAD Ultrasound Guided Aspiration Jan 19, 2008 10:53:43 AM Clinical History: Status post . Fluid collection in incisional line. Technique: Full PARQ conference was held. The patient understood and wished to proceed. Informed written consent was obtained. The patient was placed supine on the aspiration table. Following sterile prep and local anesthesia with 1% lidocaine, a 10 cm Tractiveesis catheter was introduced into anterior incisional fluid collection under ultrasonographic control and 60 mL of fluid removed of which 20 mL were sent to the lab for further evaluation. There were no immediate complications. Medications: 5 mg Versed, 200 mcg fentanyl for uncomplicated intravenous conscious sedation. Findings: 60 mL of pus were removed from anterior incisional line fluid collection as detailed above. Impression: Ultrasound guided aspiration. - Dictated By: Terrence Hahn M.D., Ph.D. Electronically Signed By: Terrence Hahn M.D., Ph.D. Date Signed: 01/19/08 Procedure Note Terrence Hahn - 01/19/2008 Ultrasound Guided Aspiration Jan 19, 2008 10:53:43 AM Clinical History: Status post . Fluid collection in incisionalline. Technique: Full PARQ conference was held. The patient understood andwished to proceed. Informed written consent was obtained. The patient was placed supine on the aspiration table. Following sterileprep and local anesthesia with 1% lidocaine, a 10 cm [employer] centesis catheter was introduced into anteriorincisional fluid collection under ultrasonographic control and 60 mL of fluid removed of which 20 mLwere sent to the lab for further evaluation. There were no immediate complications. Medications: 5 mg Versed, 200 mcg fentanyl for uncomplicated intravenousconscious sedation. Findings: 60 mL of pus were removed from anterior incisional line fluidcollection as detailed above. Impression: Ultrasound guided aspiration. - Dictated By: Terrence Hahn M.D., Ph.D. Electronically Signed By: Terrence Hahn M.D., Ph.D. Date Signed: 01/19/08 us Akira Matias MD US ORDERABLES Final Result * (ABNORMAL) PT AND APTT (01/19/2008 7:44 AM GUEST SERVICES LEAD) PTT 37.5(H) 22.5 - 36.5 Secs [facility] Comment: Therapeutic Range: Hi-level PE/DVT heparin protocol 80.1 -95.0 sec Lo-level PE/DVT heparin protocol 67.1 - 80.0 sec Cardiac Heparin Protocol 67.1 - 85.0 sec Neuro Heparin Protocol 67.1 - 80.0 sec As of 05/15/2007 note change in APTT Normal Range. INR 1.2 [facility] Comment: Expected Values for INR: DVT/PE Goal INR 2.5; range 2.0 - 3.0 Valve Replacement Tissue Goal INR 2.5; range 2.0 - 3.0 Mechanical Goal INR 3.0; range 2.5 - 3.5 POST-MT Goal INR 2.5; range 2.0 - 3.0 or Goal 3.0; range 2.5 - 3.5 Atrial Fibrillation Goal INR 2.5; range 2.0 - 3.0 Ischemic Stroke Goal INR 2.5; range 2.0 - 3.0 For additional information see Guidelines for Anticoagulation available from the pharmacy Farhan Lucas [phone] PROTIME 16.6(H) 12.8 - 15.8 Secs [facility] Comment:As of 2007 not e change in normal range. Blood specimen (specimen) 01/19/2008 7:44 AM GUEST SERVICES LEAD 01/19/2008 7:55 AM GUEST SERVICES LEAD Akira Matias MD HEMATOLOGY ORDERABLES Edited Performing Organization Address [facility] de Phone Number INTERFACE SYSTEM Refer to clinic/hospital department [facility] CLIA# [id number] [address] [place] [address] * PLATELET COUNT (01/19/2008 7:44 AM GUEST SERVICES LEAD) Pathologist [facility] PLATELETS 303 140 - 440 K/ul [facility] Blood specimen (specimen) 01/19/2008 7:44 AM GUEST SERVICES LEAD 01/19/2008 7:55 AM GUEST SERVICES LEAD Akira Matias MD HEMATOLOGY ORDERABLES Final Res ult Performing Organization Address [facility] Phone Number INTERFACE SYSTEM Refer to clinic/[facility] CLIA# [id number] [address] [place] [address] * CHLAMYDIA DNA AMPLIFICATION (01/19/2008 2:35 AM GUEST SERVICES LEAD) [facility] FINAL REPORT DNA Amplification Assay: negative for Chlamydia trachomatis --------- The Rosa M [employer] CT/NG test by Polymerase Chain Reaction (PCR) is approved for testing only on endocervical and male urethral swab specimens and urine. The use of specimens from any other body site has not been validated. Dectection of Chlamadia trachomatis is dependent on the number of organisms present in the specimen. This may be affected by patient factors, stage of infection, specimen collection methods, transport, storage and processing procedures. INTERFACE SYSTEM Specimen from genital system (specimen) 01/19/2008 2:35 AM GUEST SERVICES LEAD 01/19/2008 6:53 AM GUEST SERVICES LEAD Mark Pereyra MD MICROBIOLOGY - GENERAL ORD ERABLES Final Result Performing Organization Address City/[facility] Co de Phone Number INTERFACE SYSTEM Refer to clinic/hospital department * (ABNORMAL) WET PREP GENITAL (01/19/2008 2:35 AM GUEST SERVICES LEAD) WET PREP GENITAL No Trichomonas Seen No Trichomonas Seen [facility] WET YEAST None Observed None Observed [facility] WET CLUE CELLS Present(A) None Observed [facility] Specimen from genital system (specimen) 01/19/2008 2:35 AM GUEST SERVICES LEAD 01/19/2008 2:47 AM GUEST SERVICES LEAD Mark Pereyra MD MICROBIOLOGY - GENERAL ORD ERABLES Final Result Performing Organization Address City/[facility]/ZIP Co de Phone Number INTERFACE SYSTEM Refer to clinic/hospital department [facility] CLIA# [id number] [address] [place] [address] * GC DNA AMPLIFICATION (01/19/2008 2:35 AM GUEST SERVICES LEAD) FINAL REPORT DNA Amplification Assay: negative for Neisseria gonorrhoeae The [employer] CT/NG test by Polymerase Chain Reaction (PCR) is approved for testing only on endocervical and male urethral swab specimens and male urine. The use of specimens from any other body site has not been validated. Detection of Neisseria gonorrhoeae is dependent on the number of organisms present in the specimen. This may be affected by patient factors, stage of infection, specimen collection methods, transport, storage and processing procedures. INTERFACE SYSTEM Specimen from genital system (specimen) 01/19/2008 2:35 AM GUEST SERVICES LEAD 01/19/2008 6:53 AM GUEST SERVICES LEAD Mark Pereyra MD MICROBIOLOGY - GENERAL ORD ERABLES Final Result Performing Organization Address [facility] Phone Number INTERFACE SYSTEM Refer to clinic/hospital department * URINE CULTURE (01/19/2008 2:16 AM GUEST SERVICES LEAD) FINAL REPORT Mixed gram positive gustavo suggestive of genital/skin gustavo. If clinically indicated, please submit an appropriately collected specimen. INTERFACE SYSTEM 01/19/2008 2:16 AM GUEST SERVICES LEAD 01/19/2008 2:16 AM GUEST SERVICES LEAD Mark Pereyra MD MICROBIOLOGY - GENERAL ORD ERABLES Final Result Performing Organization Address [facility] Phone Number INTERFACE SYSTEM Refer to clinic/hospital department * CT ABDOMEN PELVIS W CONTRAST (01/19/2008 2:00 AM GUEST SERVICES LEAD) Anatomical Region Laterality Modality Abdomen Other 01/19/2008 2:00 AM GUEST SERVICES LEAD Narrative 01/23/2008 4:12 PM GUEST SERVICES LEAD Exam: CT Abdomen, Pelvis, w/contrast Date/Time of Exam: Jan 19, 2008 2:00:39 AM History: Please see order comments. Fever. Abdominal pain. Status post C- section. Technique: Examination consists of a helical CT scan of the abdomen and pelvis performed with IV and oral contrast on a Sonarworkspeed [address] scanner. A total of 125 mL of Optiray 240 contrast material was injected intravenously without complications. Comparison: 02/01/2006. Findings: Lung bases are unremarkable. Heart size appears within normal limits. Liver is unremarkable in appearance. No focal hepatic lesions or perihepatic fluid collections are identified. There is no evidence for intra or extrahepatic biliary dilatation. Gallbladder is unremarkable. The head, body and tail of the pancreas appear within normal limits. Spleen is unremarkable. Left and right adrenal glands and left and right kidneys appear within normal limits. The stomach and small and large intestines are unremarkable. Urinary bladder appears within normal limits. Uterus is enlarged consistent with post gravid state. Free fluid is seen in the cul-de-sac. Anterior abdominal wall postoperative changes of are noted. Infiltration of the subcutaneous tissues of the anterior abdominal wall are noted. There is a fluid collection in the right incision obliquely measuring 7.5 x 2.8 x 2.8 and containing gas bubbles. This fluid collection is worrisome for abscess though this may also represent seroma versus hematoma versus infected hematoma. Clinical correlation is suggested. No other suspicious masses, fluid collections or lymphadenopathy is identified. No free intraperitoneal air is identified. Impressions: 1. Fluid collection along the anterior abdominal wall in the incisional site worrisome for abscess versus hematoma versus seroma versus infected hematoma and other less likely entities. Clinical correlation suggested. 2. Post gravid uterus. 3. Free fluid seen in the tree shear operator cul-de-sac. - Dictated By: Terrence Hahn M.D., Ph.D. Electronically Signed By: Terrence Hahn M.D., Ph.D. Date Signed: 01/23/08 Procedure Note Terrence Hahn - 01/23/2008 Exam: CT Abdomen, Pelvis, w/contrast Date/Time of Exam: Jan 19, 2008 2:00:39 AM History: Please see order comments. Fever. Abdominal pain. Status postC-section. Technique: Examination consists of a helical CT scan of the abdomen andpelvis performed with IV and oral contrast on a Sonarworkspeed [address] scanner. A total of 125 mL ofOptiray 240 contrast material was injected intravenously without complications. Comparison: 02/01/2006. Findings: Lung bases are unremarkable. Heart size appears within normallimits. Liver is unremarkable in appearance. No focal hepatic lesions orperihepatic fluid collections are identified. There is no evidence for intra or extrahepatic biliarydilatation. Gallbladder is unremarkable. The head, body and tail of the pancreas appear within normallimits. Spleen is unremarkable. Left and right adrenal glands and left and right kidneysappear within normal limits. The stomach and small and large intestines are unremarkable. Urinary bladderappears within normal limits. Uterus is enlarged consistent with post gravid state. Free fluid is seenin the cul-de-sac. Anterior abdominal wall postoperative changes of are noted. Infiltrationof the subcutaneous tissues of the anterior abdominal wall are noted. There is a fluid collection in theright incision obliquely measuring 7.5 x 2.8 x 2.8 and containing gas bubbles. This fluidcollection is worrisome for abscess though this may also represent seroma versus hematoma versus infectedhematoma. Clinical correlation is suggested. No other suspicious masses, fluid collections orlymphadenopathy is identified. No free intraperitoneal air is identified. Impressions: 1. Fluid collection along the anterior abdominal wall in the incisionalsite worrisome for abscess versus hematoma versus seroma versus infected hematoma and other less likelyentities. Clinical correlation suggested. 2. Post gravid uterus. 3. Free fluid seen in the tree shear operator cul-de-sac. - Dictated By: Terrence Hahn M.D., Ph.D. Electronically Signed By: Terrence Hahn M.D., Ph.D. Date Signed: 01/23/08 us Mark Pereyra MD CT ORDERABLES Final Resu lt * BASIC METABOLIC PANEL (01/19/2008 12:35 AM GUEST SERVICES LEAD) ANION GAP 13 9 - 20 mEq/L [facility] SODIUM 139 136 - 145 mEq/L [facility] BUN 11 7 - 17 mg/dL [facility] CO2 25 22 - 32 mmol/l [facility] POTASSIUM 3.6 3.5 - 5.0 mEq/L [facility] OSMOLALITY, CALCULATED 285 275 - 295 mOsm/Kg [facility] CREATININE 1.0 0.7 - 1.2 mg/dL [facility] CALCIUM 9.1 8.4 - 10.5 mg/dL [facility] GLUCOSE 107 70 - 110 mg/dL [facility] CHLORIDE 105 95 - 110 mEq/L [facility] Blood specimen (specimen) 01/19/2008 12:35 AM GUEST SERVICES LEAD 01/19/2008 12:51 AM GUEST SERVICES LEAD us Mark Pereyra MD CHEMISTRY ORDERABLES Final Result INTERFACE SYSTEM Refer to clinic/hospital department [facility] CLIA# [id number] [address] [place] [address] * (ABNORMAL) CBC WITH DIFFERENTIAL (01/19/2008 12:35 AM GUEST SERVICES LEAD) HEMOGLOBIN 10.2(L) 12.0 - 16.0 g/dL [facility] MONOCYTES 4.7 2.0 - 10.0 % [facility] RDW 14.2 11.0 - 14.5 % [facility] EOSINOPHIL ABSOLUTE 0.1 0.0 - 0.7 K/ul [facility] WBC 21.3(H) 4.5 - 12.5 K/ul [facility] NEUTROPHILS 86.2(H) 42.2 - 75.2 % [facility] MCH 27.9 27.0 - 34.0 pg [facility] LYMPHOCYTE ABSOLUTE 1.9 1.2 - 4.0 K/ul [facility] HEMATOCRIT 30.5(L) 36.0 - 46.0 % [facility] PLATELETS 309 140 - 440 K/ul [facility] EOSINOPHILS 0.4 0.0 - 7.0 % [facility] BASOPHILS ABSOLUTE 0.0 0.0 - 0.2 K/ul [facility] RBC 3.66(L) 4.20 - 5.40 Mil/ul [facility] MCHC 33.4 30.0 - 35.0 g/dL [facility] LYMPHOCYTES 8.7(L) 24.0 - 44.0 % [facility] MONOCYTE ABSOLUTE 1.0(H) 0.1 - 0.6 K/ul [facility] MCV 83.3(L) 84.0 - 103.0 Fl [facility] NEUTROPHIL ABSOLUTE 18.4(H) 2.0 - 8.0 K/ul [facility] MPV 9.3 8.9 - 12.8 Fl [facility] Blood specimen (specimen) 01/19/2008 12:35 AM GUEST SERVICES LEAD 01/19/2008 12:51 AM GUEST SERVICES LEAD Mark Pereyra MD HEMATOLOGY ORDERABLES Lakisha l Result Performing Organization Address [facility] Phone Number INTERFACE SYSTEM Refer to clinic/hospital department [facility] CLIA# [id number] [address] [place] [phone] * (ABNORMAL) URINALYSIS MICROSCOPY ONLY (01/19/2008 12:20 AM GUEST SERVICES LEAD) WBC URINE 11-15(A) 0 - 2 [facility] BACTERIA UA Few(A) None Seen [facility] RBC UA 3-5(A) 0 - 2 [facility] HYALINE CAST 3-5(A) 0 - 2 [facility] Urine specimen (specimen) 01/19/2008 12:20 AM GUEST SERVICES LEAD 01/19/2008 12:51 AM GUEST SERVICES LEAD Narrative INTERFACE SYSTEM - 01/19/2008 1:14 AM GUEST SERVICES LEAD Microscopic ordered by policy Mark Pereyra MD URINE ORDERABLES Final Res ult Performing Organization Address [facility] Phone Number INTERFACE SYSTEM Refer to clinic/hospital department [facility] CLIA# [id number] [address] [place] [phone] * (ABNORMAL) URINALYSIS (01/19/2008 12:20 AM GUEST SERVICES LEAD) PH UA 6.0 5.0 - 9.0 [facility] BILIRUBIN UA NEGATIVE NEGATIVE [facility] LEUKOCYTE ESTERASE UA Large(A) NEGATIVE [facility] KETONES UA Trace(A) NEGATIVE [facility] MICRO EXAM Yes(A) No [facility] COLOR UA Yellow Straw [facility] PROTEIN UA NEGATIVE NEGATIVE [facility] BLOOD UA MODERATE(A) NEGATIVE [facility] NITRITE UA NEGATIVE NEGATIVE [facility] UROBILINOGEN UA 0.2 0.2 [facility] CLARITY UA Clear Clear [facility] SPECIFIC GRAVITY UA 1.015 <=1.005 [facility] GLUCOSE UA NEGATIVE NEGATIVE [facility] Urine specimen (specimen) 01/19/2008 12:20 AM GUEST SERVICES LEAD 01/19/2008 12:51 AM GUEST SERVICES LEAD us Mark Pereyra MD URINE ORDERABLES Final Res ult Performing Organization Address City/State/[facility] Co de Phone Number INTERFACE SYSTEM Refer to clinic/hospital department [facility] CLIA# [id number] [address] [place] [phone] documented in this encounter Visit Diagnoses Diagnosis Infection due to other Gram-negative organisms in conditions classified elsewhere and of unspecified site Infection due to other gram-negative organisms in conditions classified elsewhere and of unspecified site Cellulitis and abscess of trunk documented in this encounter Care Teams Post Acute Care Nurse Relationship Specialty Start Date End Date Hadley Fuentes DO [address] [place] [address] PCP - General Family Practice 03/29/20 documented as of this encounter
--- OUTSIDE RECORDS SUMMARY | 2024-12-08 08:38 | XMS_ITS | Encounter Summary ---
Author Organization [facility] Address [address] [place] [address] Care Team Providers Care Senior Administrative Services Officer Name Role Phone Hadley Fuentes DO Primary Care Provider [phone] Encounter Details Date Type Department Care Team (Late st Contact Info) Description 11/23/2007 Outpatient Historical [facility]PAT[facility] Tra Clark MD [address] [place] [address] Greg Rdz, Bg Mulligan MD [address] [place] [address] Social History Tobacco Use Types Packs/Day Years Used Date Smoking Tobacco: Every Day Cigarettes 0.3 2.5 Comments Yes Sex and Gender Information Value Date Recorded Sex Assigned at Not on file 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 No report expected. Procedure Note 03/29/2008 Finalized by interface cleanup utility. No report expected. us Tra Clark MD US ORDERABLES Final Result documented in this encounter Visit Diagnoses Not on filedocumented in this encounter Care Teams Senior Administrative Services Officer Relationship Specialty Start Date End Date Hadley Fuentes DO [address] [place] [address] PCP - General Family Practice 03/29/20 documented as of this encounter
--- OUTSIDE RECORDS SUMMARY | 2024-12-08 08:38 | XMS_ITS | Clinical Summary ---
Author Organization [facility] Address [address] [place] [address] Care Team Providers Care Food Processing Scientist Name Role Phone Neftaly Carlos MD Primary Care Provider [phone] Allergies Active Allergy Reactions Criticality Noted Date Comments Penicillins Unknown 11/21/2007 Medications DULoxetine (CYMBALTA) 20 mg Capsule, Delayed Release(E.C.) TAKE ONE CAPSULE BY MOUTH ONCE DAILY FOR 2 WEEKS THEN 1 TWICE A DAY 2 Active ferrous sulfate 325 mg (65 mg iron) tablet Take 325 mg by mouth daily. 1 Active meloxicam (MOBIC) 15 mg tablet Take 15 mg by mouth daily. 2 Active PNV,calcium 93-pgrw-rfhlg acid ( Vitamin Plus Low Iron) 27 mg iron- 1 mg Tablet 1 Active topiramate (TOPAMAX) 25 mg tablet Take 25 mg by mouth daily. 2 Active fluticasone propionate (FLONASE) 50 mcg/spray [place], Suspension nasal inhalerIndicatio ns:Seasonal allergic rhinitis, unspecified trigger Administer 2 Sprays in each nostril daily. 16 Gram 1 4 Active Additional Information Patient not taking.Reported on 10/08/2024 cetirizine (ZyrTEC) 10 mg tabletIndication s:Seasonal allergic rhinitis, unspecified trigger Take 1 Tablet (10 mg) by mouth daily. 90 Tablet 1 4 Active Additional Information Patient not taking.Reported on 10/08/2024 acyclovir (ZOVIRAX) 5 % OintmentIndicati ons:Cold sore Apply to affected area every 4 hours. 15 Gram 4 Active Additional Information Patient not taking.Reported on 10/08/2024 phentermine (ADIPEX P) 37.5 mg tabletIndication s:Overweight with body mass index (BMI) of 26 to 26.9 in adult TAKE 1 TABLET BY MOUTH DAILY BEFORE BREAKFAST 30 Tablet 2 5 Active Active Problems Problem Noted Date Diagnosed Date Previous delivery affecting 0 10/15/2014 Supervision of other normal 10/15/2014 Sleeplessness 06/01/2009 Irritability and anger 11/15/2008 Overview (06/23/2020): Updating IMO/ICD9 Code and Description Attention deficit hyperactivity disorder (ADHD) 11/15/2008 Overview (06/23/2020): Updating IMO/ICD9 Code and Description Panic attacks 11/15/2008 Encounters Date Type Department Care Team Description 12/02/2024 Nurse Triage [address] [phone] Neftaly Carlos MD 11/11/2024 External Device Data [facility] ABSTRACTION Provider, Abstract 10/28/[address] [phone] Neftaly Carlos MD Overweight with body mass index (BMI) of 26 to 26.9 in adult 10/14/2024 External Device Data [facility] ABSTRACTION Provider, Abstract 10/13/2024 External Device Data [facility]STRACTION Provider, Abstract 10/12/2024 Results Follow-Up [address] [phone] Delores Ruano, DALE CBC WITH DIFFERENTIAL, COMPREHENSIVE METABOLIC PANEL, TSH, Additional followed-up results: 2 10/09/2024 Orders Only [address] [address] Carlito Mancilla, ALINE 10/08/2024 12:45 PM CDT Ancillary Procedure [address] [address] Delores Ruanoetta, DALE Injury of left ankle, initial encounter 10/08/2024 12:20 PM CDT Office Visit [address] [phone] Delores Ruano, TIE CARRIER Pain in right eye (Primary Dx); Vision changes; Injury of left ankle, initial encounter; Facial swelling; Worsening headaches 09/30/2024 External Device Data [facility] ABSTRACTION Provider, Abstract 09/29/2024 External Device Data [facility] ABSTRACTION Provider, Abstract 09/09/2024 External Device Data [facility] ABSTRACTION Provider, Abstract 09/09/2024 External Device Data [facility] ABSTRACTION Provider, Abstract from Last 3 Months Immunizations Immunization Administration Dates Next Due (TDVAX)(7 [...] 0 08/2009 - 08/2019 Smokeless Tobacco: Never Tobacco Cessation:Counseling Given: Not Answered Comments:Quit once in 2007, quit again 08/2019 Alcohol Use Standard Drinks/Week Comments No 0 (1 standard drink = 0.6 oz pur e alcohol) Comments No Sex and Gender Information Value Date Recorded Sex Assigned at Not on file Legal Sex Female 8:40 AM 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 Gender Identity Not on file Sexual Orientation Not on file Last Filed Vital Signs Vital Sign [place] Time Taken Comments Blood Pressure 124/70 10/08/2024 11:58 AM CDT Pulse 61 10/08/2024 11:58 AM CDT Temperature 36.4 C (97.6 F) 10/08/2024 11:58 AM CDT Respiratory Rate 16 10/08/2024 11:58 AM CDT Oxygen Saturation 99% 10/08/2024 11:58 AM CDT Inhaled Oxygen Concentration - - Weight 75.3 kg (166 lb) 10/08/2024 11:58 AM CDT Height 168.9 cm (5' 6.5 ) 10/08/2024 11:58 AM CD T Body Mass Index 26.39 10/08/2024 11:58 AM CDT Plan of Treatment Upcoming Encounters Date Type Department Care Team (Late st Contact Info) Description 12/14/2024 1:40 PM CDT Office Visit [address] [phone] Neftaly Carlos MD [address] [place] [phone] 04/13/2025 2:00 PM AUTOMATIC I 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 Office Visit [address] [phone] Neftaly Carlos MD [address] [place] [phone] Health Maintenance Due Date Last Done Comments Pre-Diabetes and Diabetes Screening 1989 DTAP/TDAP/TD VACCINES (6 - Tdap) 08/03/2009 08/02/2009, 12/02/2003, 10/09/1990, Additional history exists HPV VACCINES (1 - 3-dose SCD M series) 2016 Preventative Visit-Managed Medicaid 07/08/2024 07/08/2023 INFLUENZA VACCINE (#1) 2024 12/16/2007 PAP SMEAR 07/07/2026 07/08/2023 CERVICAL CANCER SCREENING 07/07/2028 HPV/Cotest (21-29) 07/07/2028 07/08/2023 HPV/Cotest (30-65) 07/07/2028 07/08/2023 HEPATITIS B VACCINES Completed 04/01/2002, 04/01/2002, 09/15/2001, Additional history exists Procedures Procedure Name Priority Date/Time Associated Diagnosis Comments NM DILATED RETINAL EXAM W/O EVIDENCE OF RETINOPATHY Routine 10/09/2024 2:11 PM CDT TSH Routine 10/09/2024 12:24 PM CDT Pain in right eye Worsening headaches SYSTEMIC AUTOIMMUNE PANEL Routine 10/09/2024 12:24 PM CDT Pain in right eye Worsening headaches COMPREHENSIVE METABOLIC PANEL Routine 10/09/2024 12:24 PM CDT Pain in right eye Worsening headaches CBC WITH DIFFERENTIAL Routine 10/09/2024 12:24 PM CDT Facial swelling XR ANKLE 2 VW LEFT Routine 10/08/2024 12 :21 PM CDT Injury of left ankle, initial encounter CERV/VAG CYTO AGE BASED SCREEN PAP Routine 07/08/2023 10:57 AM CDT Well woman exam with routine gynecological exam from Last 3 Months or Most Recently Relevant to Health Maintenance Results * NM DILATED RETINAL EXAM W/O EVIDENCE OF RETINOPATHY (10/09/2024 2:11 PM CDT) us Carlito Mancilla OD NM - MISCELLANEOUS SERVICE S Final Result [facility]# [id number] [address] [place] [address] * SYSTEMIC AUTOIMMUNE PANEL (10/09/2024 12:24 PM CDT) ELIS SCREEN NEGATIVE NEGATIVE [facility], Comment: ELIS IFA is a first line screen for detecting the presence of up to approximately 150 autoantibodies in various autoimmune diseases. A negative ELIS IFA result suggests an ELIS-associated autoimmune disease is not present at this time, but is not definitive. If there is high clinical suspicion for Sjogren's syndrome, testing for anti-SS-A/Ro antibody should be considered. Anti-Gosai-1 antibody should be considered for clinically suspected inflammatory myopathies. AC-0: Negative International Consensus on ELIS Patterns https://doi.org/10.1515/ayvt-3211-7504 For additional information, please refer to http://education.[employer]/faq/KXB787 (This link is being provided for informational/educational purposes only.) DNA AB (DS) CRITHIDIA,IFA NEGATIVE NEGATIVE [facility], CHROMATIN (NUCLEOSOMAL) ANTIBODY <1.0 NEG <1.0 NEGATIVE AI [facility]/ [facility], [place] IGG AB <1.0 NEG <1.0 NEGATIVE AI [facility], ANIBAL ABS, SM/WEB GRAPHIC DESIGNER AB <1.0 NEG <1.0 NEGATIVE AI [facility], WEB GRAPHIC DESIGNER AB <1.0 NEG <1.0 NEGATIVE AI [facility], SJOGRENS ABS (SSA) <1.0 NEG <1.0 NEGATIVE AI [facility], SJOGRENS ABS (SSB) <1.0 NEG <1.0 NEGATIVE [facility], SCLERODERMA AB SCL 70 <1.0 NEG <1.0 NEGATIVE AI [facility], JO1 AB <1.0 NEG <1.0 NEGATIVE [facility], CENTROMERE AB <1.0 NEG <1.0 NEGATIVE AI [facility], COMPLEMENT C3 127 83 - 193 mg/dL [facility], COMPLEMENT C4 27 15 - 57 mg/dL [facility], CARDIOLIPIN IGA AB <2.0 APL-U/mL [facility], Comment: Value Interpretation ----- <20.0 Antibody not detected > or = 20.0 Antibody detected CARDIOLIPIN IGG AB <2.0 GPL-U/mL [facility], Comment: Value Interpretation ----- <20.0 Antibody not detected > or = 20.0 Antibody detected CARDIOLIPIN IGM AB <2.0 MPL-U/mL [facility], Comment: Value Interpretation ----- <20.0 Antibody not detected > or = 20.0 Antibody detected B2 GLYCOPROTEIN I IGA <2.0 U/mL [facility], Comment: Value Interpretation ----- <20.0 Antibody not detected > or = 20.0 Antibody detected B2 GLYCOPROTEIN I IGG <2.0 U/mL [facility], Comment: Value Interpretation ----- <20.0 Antibody not detected > or = 20.0 Antibody detected B2 GLYCOPROTEIN I IGM <2.0 U/mL [facility], Comment: The antiphospholipid antibody syndrome (APS) is a clinical-pathologic correlation that includes a clinical event (e.g. arterial or venous thrombosis, morbidity) and persistent positive antiphospholipid antibodies (IgM, IgG Cardiolipin or b2GPI antibodies greater than the 99th percentile; or a lupus anticoagulant). International consensus guidelines for APS suggest waiting at least 12 weeks before retesting to confirm antibody persistence. The Systemic Lupus International Collaborating Clinics immunological classification criteria for systemic lupus erythematosus (SLE) include testing for isotype IgA, which has yet to be incorporated into APS criteria. Low level antiphospholipid antibodies may sometimes be detected in the setting of infection, drug therapy or aging. For additional information, please refer to http://education.PathDrug[employer]/faq/EPU090 (This link is being provided for informational/educational purposes only.) Value Interpretation ----- <20.0 Antibody not detected > or = 20.0 Antibody detected RHEUMATOID FACTOR (IGA) <5 U [facility], Comment: Reference Range: <=6 NEGATIVE >6 POSITIVE RHEUMATOID FACTOR IGG <5 U [facility]/ [facility], Comment: Reference Range: <=6 NEGATIVE >6 POSITIVE RHEUMATOID FACTOR (IGM) <[address] [facility]/ [facility], Comment: Reference Range: <=6 NEGATIVE >6 POSITIVE CYCLIC CITRULLINATED PEPTIDE AB IGG <[address] [facility]/ [facility], Comment: Reference Range: NEGATIVE: <20 WEAK POSITIVE: 20-39 MODERATE POSITIVE: 40-59 STRONG POSITIVE >59 MUTATED CITRULLINATED VIMENTIN AB <20 <20 U/mL [facility]/ [facility], Comment: Anti-mutated citrullinated vimentin antibody may be used as a second-line marker of rheumatoid arthritis, in addition to rheumatoid factor and anti-cyclic citrullinated peptide (CCP). THYROID PEROXIDASE AB <1 <9 IU/mL [facility]/ [facility], Comment: Test Performed at: [facility], [address] [place] [phone] Leia Conteh MD,PhD,CHRISTOPHER Blood 10/09/2024 12:2 4 PM CDT 10/09/2024 12:24 PM CDT Delores Ruano [facility] CHEMISTRY ORDERABLES Lakisha garcia Result [facility] [phone] [facility], [address] [place] [phone] * (ABNORMAL) CBC WITH DIFFERENTIAL (10/09/2024 12:24 PM CDT) WBC 7.3 3.8 - 10.8 Thousand/u L [facility] RBC 4.07 3.80 - 5.10 Million/uL [facility] HEMOGLOBIN 9.4(L) 11.7 - 15.5 g/dL [facility] HEMATOCRIT 33.0(L) 35.0 - 45.0 % [facility] MCV 81.1 80.0 - 100.0 fL [facility] MCH 23.1(L) 27.0 - 33.0 pg [facility] MCHC 28.5(L) 32.0 - 36.0 g/dL [facility] Comment: For adults, a slight decrease in the calculated MCHC value (in the range of 30 to 32 g/dL) is most likely not clinically significant; however, it should be interpreted with caution in correlation with other red cell parameters and the patient's clinical condition. RDW 15.2(H) 11.0 - 15.0 % [facility] PLATELETS 296 140 - 400 Thousand/u L [facility] MPV 10.6 7.5 - 12.5 fL [facility] NEUTROPHIL ABSOLUTE 5,344 1,500 - 7,800 cells/uL [facility] LYMPHOCYTE ABSOLUTE 1,402 850 - 3,900 cells/uL [facility] MONOCYTE ABSOLUTE 402 200 - 950 cells/uL [facility] EOSINOPHIL ABSOLUTE 102 15 - 500 cells/uL [facility] BASOPHILS ABSOLUTE 51 0 - 200 cells/uL [facility] NEUTROPHIL 73.2 % [facility] LYMPHOCYTES 19.2 % [facility] MONOCYTE 5.5 % [facility] EOSINOPHILS 1.4 % [facility] BASOPHILS 0.7 % [facility] Comment: Test Performed at: [facility] [address] [place] [phone] Seth Ray MD Blood 10/09/2024 12:2 4 PM CDT 10/09/2024 12:24 PM CDT us Delores HUNTER HEMATOLOGY ORDERABLES Fin al Result [facility] [phone] [facility] [address] [place] [address] * TSH (10/09/2024 12:24 PM CDT) TSH 0.79 mIU/L [facility] Comment: Reference Range > or = 20 Years 0.40-4.50 Ranges First trimester 0.26-2.66 Second trimester 0.55-2.73 Third trimester 0.43-2.91 Test Performed at: [facility] [address] [place] [address] Seth Ray MD Blood 10/09/2024 12:2 4 PM CDT 10/09/2024 12:24 PM CDT us Delores Shankar Bindu TIE CARRIER CHEMISTRY ORDERABLES Lakisha l Result [facility] [phone] [facility] [address] [place] [address] * (ABNORMAL) COMPREHENSIVE METABOLIC PANEL (10/09/2024 12:24 PM CDT) GLUCOSE 89 65 - 99 mg/dL [facility] Comment: Fasting reference interval BUN 17 7 - 25 mg/dL [facility] CREATININE 0.99(H) 0.50 - 0.97 mg/dL [facility] GFR 76 > OR = 60 mL/min/1.7 3m2 [facility] BUN/CREAT RATIO 17 6 - 22 (calc) [facility] SODIUM 139 135 - 146 mmol/L [facility] POTASSIUM 4.4 3.5 - 5.3 mmol/L [facility] CHLORIDE 106 98 - 110 mmol/L [facility] CO2 27 20 - 32 mmol/L [facility] CALCIUM 9.7 8.6 - 10.2 mg/dL [facility] TOTAL PROTEIN 6.8 6.1 - 8.1 g/dL [facility] ALBUMIN 4.2 3.6 - 5.1 g/dL [facility] GLOBULIN 2.6 1.9 - 3.7 g/dL (calc) [facility] ALBUMIN/GLOBULIN RATIO 1.6 1.0 - 2.5 (calc) [facility] BILIRUBIN TOTAL 0.3 0.2 - 1.2 mg/dL [facility] ALKALINE PHOSPHATASE 84 31 - 125 U/L [facility] AST 16 10 - 30 U/L [facility] ALT 14 6 - 29 U/L [facility] Comment: Test Performed at: [facility] [address] [place] [address] Seth Ray MD Blood 10/09/2024 12:2 4 PM CDT 10/09/2024 12:24 PM CDT us Delores Shankar Bindu TIE CARRIER CHEMISTRY ORDERABLES Lakisha l Result [facility] [phone] [facility] [address] [place] [address] * XR ANKLE 2 VW LEFT (10/08/2024 12:21 PM CDT) Anatomical Region Laterality Modality Ankle / Foot Computed Radiogr aphy 10/08/2024 12:2 1 PM CDT Impressions 10/08/2024 4:41 PM CDT IMPRESSION: Please see below. Exam: XR ANKLE 2 VW LEFT Date/Time of Exam: 10/08/2024 12:21 PM Reason For Exam: See Diagnosis. Diagnosis: Injury of left ankle, initial encounter. Comparison: None Findings: The bones are intact, well mineralized and normally aligned and the joint spaces are well-maintained. Jspow-qj-wkywqmer plantar calcaneal spur. IMPRESSION: 1. Nothing acute. Narrative Procedure Note Yaw Teixeira MD - 10/08/2024 IMPRESSION: Please see below. Exam: XR ANKLE 2 VW LEFT Date/Time of Exam: 10/08/2024 12:21 PM Reason For Exam: See Diagnosis. Diagnosis: Injury of left ankle, initial encounter. Comparison: None Findings: The bones are intact, well mineralized and normally aligned and the joint spaces are well-maintained. Dbqbv-om-wkedezqj plantar calcaneal spur. IMPRESSION: 1. Nothing acute. Delores Ruano TIE CARRIER DIAGNOSTIC IMAGING ORDERA BLES Final Result * (ABNORMAL) CERV/VAG CYTO AGE BASED SCREEN PAP (07/08/2023 10:57 AM CDT) COMMENT (PAP): [facility] Comment: This order for age-based cervical cancer and STI screening follows ACOG guidelines(PB 168, 140, DYO037). See individual assays for performing site location. CLINICAL INFORMATION [facility] Comment:None given LAST MENSTRUAL PERIOD [facility] Comment:06/17/2023 PREV PAP: [facility] Comment:NONE GIVEN PREV BX: [facility] Comment:NONE GIVEN SOURCE [facility] Comment:Endocervix ADEQUACY: [facility] Comment: Satisfactory for evaluation. Endocervical/transformation zone component present. PAP INTERP [facility] Comment: Cytology Results: Negative for intraepithelial lesion or malignancy. COMMENT (PAP TEST) [facility] [place] Comment: This Pap test has been evaluated with computer assisted technology. CASINO CASHIER MANAGER: Qu est Renard [place] Comment: YQ, CT(ASCP) CT screening location: [place] [address] [place] [address] REVIEW CASINO CASHIER MANAGER: Hilario [place] Comment: MEF, CT(ASCP) CT screening location: [place] [address] [place] [address] EXPLANATORY NOTE Que Renard [place] Comment: EXPLANATORY NOTE: The Pap is a screening test for cervical cancer. It is not a diagnostic test and is subject to false negative and false positive results. It is most reliable when a satisfactory sample, regularly obtained, is submitted with relevant clinical findings and history, and when the Pap result is evaluated along with historic and current clinical information. HPV E6/E7 Detected(A) Not Detected [facility] Comment: Methodology: Content Creation Manager-Mediated Amplification This assay detects E6/E7 viral messenger RNA (mRNA) from 14 high-risk HPV types (16,18,31,33,35,39,45,51,52,56,58,59,66,68). Cervical sources are required for HPV testing. If a vaginal source from a patient who has had a total hysterectomy with removal of cervix was submitted, please contact the testing laboratory for alternative testing options. For additional information, please refer to http://education.PathDrugomics/faq/JHC141c5 (This link if provided for information/ educational purposes only.) HPV 16 RNA NOT DETECTED NOT DETECTED [facility] HPV 18/45 RNA NOT DETECTED NOT DETECTED [facility] Comment: Methodology: Content Creation Manager Mediated Amplification Cervical sources are required for HPV testing. If a vaginal source from a patient who has had a total hysterectomy with removal of cervix was submitted, please contact the testing laboratory for alternative testing options. Test Performed at: [facility] [address] [place] [address] Seth MCNAIR Genital SWAB OF ENDOCERVIX / Unknown 07/08/2023 10:57 AM CDT 07/09/2023 6:19 AM CDT Neftaly Carlos MD PATHOLOGY/CYTOLOGY ORDERABLES [facility] Result [facility] [phone] [facility] [address] [place] [address] from Last 3 Months or Most Recently Relevant to Health Maintenance [place] [address] [address] [place] [address] MEDICAID RX INFOCROSSING Medicaid [facility] MEDICAID Care Teams Food Processing Scientist Relationship Specialty Start Date End Date Neftaly Carlos MD [address] [place] [phone] PCP - General Family Practice 07/08/23
--- OUTSIDE RECORDS SUMMARY | 2024-12-08 08:38 | XMS_ITS | Encounter Summary ---
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 The smear lacks endocervical or metaplastic cells. Diagnosis NEGATIVE FOR INTRAEPITHELIAL LESION OR MALIGNANCY. Shift in gustavo suggestive of bacterial vaginosis. Obstetrics Nurse Practitioner SFF 06/19/07 Completed by: Trupti Alexander (ASCP) (Electronically signed by) 06/19/07 Comment Repeat Pap smear within 6-12 months. Important Info About Pap Smears HPV Testing off the Thin Prep vial can be done as a means of further evaluating a Thin Prep Report. For information about ordering the HPV test, phone Cytology at . Treatment or follow-up recommendations (if any) that are considered within this report are based upon general recommendations as contained in 2001 Consensus Guidelines For Cervical Cytological Abnormalities MELANI: June 18, 2001, and are provided as a general guideline rather than as a specific recommendation. Final decisions about the most appropriate treatment and follow-up should be made on an individualized basis by the treating physician in consultation with his/her patient. INTERFACE SYSTEM 06/17/2007 6:05 AM CDT us Tra Clark MD PATHOLOGY/CYTOLOGY ORDERABLES Final Result INTERFACE SYSTEM Refer to clinic/hospital department documented in this encounter Visit Diagnoses Diagnosis Supervision of other normal documented in this encounter Care Teams Wire Rope Sling Maker Relationship Specialty Start Date End Date Hadley Fuentes DO [address] [place] [address] PCP - General Family Practice 03/29/20 documented as of this encounter
[2024-12-08 09:42] LABS: Hematocrit 38.2 % (36-47); Hemoglobin 10.90 g/dL (11.27-16.99); Mean Corpuscular HGB Conc 28.5 g/dL (30-55); Mean Corpuscular Hemoglobin 23.9 pg (27-33); Mean Corpuscular Volume 83.6 fl (85-98); Nucleated Red Blood Cells % 0 %; Platelet Count 292 10^3/cmm (157-399); Red Blood Count 4.57 10^6/uL (3.85-5.65); White Blood Count 4.76 10^3/uL (3.29-11.43)
[2024-12-08 10:03] LABS: Troponin(5th) Baseline < 6 ng/L (0-10)
[2024-12-08 10:05] LABS: Alanine Aminotransferase 11 U/L (0-33); Albumin Level 4.2 g/dL (3.5-5.2); Alkaline Phosphatase 92 U/L (35-105); Aspartate Amino Transferase 18 U/L (0-32); Blood Urea Nitrogen 15 mg/dL (6-20); Calcium 9.7 mg/dL (8.5-10.5); Carbon Dioxide 23 mmol/L (22-29); Chloride 103 mmol/L (98-107); Creatinine Clr Calc Pharmacy 124.3153; Globulin 2.3 g/dL (1.3-4.6); Glucose 84 mg/dL (65-115); Osmolality Calculated 286 mOsm/kg (285-295); Sodium 138 mmol/L (136-145); Total Protein 6.5 g/dL (6.6-8.7)
[2024-12-08 10:07] LABS: Anion Gap 16.0 (5-19); Potassium 4.0 mmol/L (3.5-5.1)
[2024-12-08 10:08] LABS: HCG, Serum Qual Negative (Negative)
[2024-12-08 10:24] VITALS: BP 148/83; PULSE 57; O2SAT 98
== END 2024-12-08 10:26 | disposition home or self-care (01) ==
PROVIDERS: Emergency Provider Emergency Medicine; Family Provider Family Medicine; PCP Nurse Practitioner Family
DX: R00.2 Palpitations (principal)
CPT/HCPCS: 36415; 71045; 80053; 84484; 84703; 85025; 85378; 93005; 99285